=== PATIENT | male | born 1975 | race Caucasian/White ===

== ENCOUNTER 2020-08-11 17:48 | Inpatient (IN) | payer MEDICAID ==
[~2020-08-11] VITALS: Ht 175.3 cm; Wt 75.5 kg
[2020-08-11] MEDS ORDERED: ZINC SULFATE 220mg CAP or TAB PO ONE (18:30)
[2020-08-11] MEDS ORDERED: methylPREDNISolone SOD SUCC 125 MG/2 ML VL IV ONE (18:30)
[2020-08-11] MEDS ORDERED: ASCORBIC ACID 500 MG TAB PO ONE (18:30)
[2020-08-11] MEDS ORDERED: cefTRIAXone 1GM/50ML D5W 50 ML IV ONE (18:30)
[2020-08-11] MEDS ORDERED: AZITHROMYCIN 500MG/ 250ML 250 ML IV ONE (18:30)
[2020-08-11] MEDS ORDERED: MORPHINE SULFATE 4 MG/ML SYR/VIAL IV ONE (18:45)
[2020-08-11 19:08] LABS: Basophils # (auto) 0.1 10 ^3/uL (0-0.2); Basophils % (auto) 0.4 % (0.0-2.0); Eosinophils # (auto) 0 10 ^3/uL (0-0.8); Eosinophils % (auto) 0.2 % (0.0-7.0); Hematocrit 42.6 % (41.0-53.0); Lymphocytes # (auto) 0.8 10 ^3/uL (0.4-5.4); Lymphocytes % (auto) 3.8 % (10.0-50.0); Mean Corpuscular Hemoglobin 33.2 pg (28.0-32.0); Mean Corpuscular Hgb Conc. 35.3 g/dL (32.0-36.0); Mean Corpuscular Volume 94.1 fL (80.0-100.0); Monocytes # (auto) 2.6 10 ^3/uL (0-1.3); Monocytes % (auto) 12.4 % (0.0-12.0); Neutrophils # (auto) 17.3 10 ^3/uL (1.6-8.6); Neutrophils % (auto) 83.2 % (37.0-80.0); Nucleated Red Blood Cells % 0.2 %; Platelet Count (auto) 385 10^3/uL (140-450); Red Blood Cells 4.53 10^6/uL (4.5-5.90); Red Cell Distribution Width 13.2 % (11.8-14.3); White Blood Cell 20.7 10^3/uL (4.4-10.8)
[2020-08-11 19:23] LABS: Albumin 3.5 g/dL (3.4-5.0); Anion Gap 10 (5-15); Blood Urea Nitrogen 10 mg/dL (7-18); Calcium 9.5 mg/dL (8.5-10.1); Carbon Dioxide 24 mmol/L (21-32); Chloride 100 mmol/L (98-107); Glucose 123 mg/dL (74-106); Magnesium 2.6 mg/dL (1.6-2.6); Sodium 134 mmol/L (136-145)
[2020-08-11 19:30] LABS: Alanine Aminotransferase 159 U/L (16-61); Alkaline Phosphatase 171 U/L (45-117); Aspartate Aminotransferase 122 U/L (15-37); BUN/Creatinine Ratio 8.5; Bilirubin, Total 1.2 mg/dL (0.2-1.0); GFR African American 88 mL/min; GFR Non-African American 72 mL/min; Total Protein 8.9 g/dL (6.4-8.2)
[2020-08-11 19:42] LABS: Potassium 2.9 mmol/L (3.5-5.1)
[2020-08-11 19:45] LABS: INR 1.07 (0.9-1.15); Partial Thromboplastin Time 30.1 sec (23.0-31.2)
[2020-08-11] MEDS ORDERED: POTASSIUM CHL 20MEQ/100ML 100 ML IV ONE (19:45)
[2020-08-11] MEDS ORDERED: POTASSIUM CHL 20 Meq TABLET PO ONE (19:45)
[2020-08-11] MEDS ORDERED: cloNIDine HCL 0.1 MG TAB PO ONE ×2 (20:15→22:00)
[2020-08-11] MEDS ORDERED: ONDANSETRON HCL 4 MG/2 ML VIAL IV ONE (20:45)
[2020-08-11] MEDS ORDERED: MORPHINE SULF INJ 2 MG/ML SYRINGE 1ML IV PRN (21:00)
[2020-08-11] MEDS ORDERED: NITROGLYCERIN 0.4 MG SL TAB SL PRN (21:00)
[2020-08-11] MEDS ORDERED: ALBUTEROL SULF HFA 90MCG INH 200DOSE IN SCH (22:00)
[2020-08-11] MEDS ORDERED: DOXYCYCLINE 100MG/250ML 250 ML IV SCH (22:00)
[2020-08-11 22:42] VITALS: BP 128/74
--- NOTE | 2020-08-11 22:45 | NUR ---
pt arrived via wheel chair. pt is ambulatory, and transferred self to hospital bed.
--- NOTE | 2020-08-11 23:03 | NUR ---
Respiratory note: PT SEEN AND ASSESSED AT THIS TIME. NO RESPIRATORY DISTRESS NOTED. HR 77 RR 18 SP02 95% ON ROOM AIR.
[2020-08-11 23:10] VITALS: BP 128/74
--- NOTE | 2020-08-12 04:55 | NUR ---
pt transferred to 223B. Endorsed care to JIGAR Powers.
--- NOTE | 2020-08-12 05:00 | NUR ---
Assumed patient care Assumed patient care, report received from Zoraida KIMBALL. Patient transferred to room 223B with all personal belongings via wheelcair. Patient AOx4, no distress noted. Bed in lowest locked position, call light within reach, side rails up x2. Will continue to monitor Q1hr and PRN.
[2020-08-12] MEDS: ACETAMINOPHEN 325 MG TAB PO PRN (05:09)
[2020-08-12 06:33] VITALS: BP 124/88
--- NOTE | 2020-08-12 08:00 | NUR ---
Opening Shift Note Assumed care of patient, awake, alert and oriented X4. No S/S of distress/SOB, complains of left, upper posterior back pain 5/10, verbalized this is tolerable. Tele# 36, sinus rhythm @ 63 bpm. IV X2, left antecubital, 22 gauge and left forearm, 18 gauge. both patent and saline locked. Instructed on POC and to call for assist PRN, verbalized understanding. Bed locked, in lowest position, call light within reach, will continue to monitor for changes Q1hr and PRN.
[2020-08-12 08:45] VITALS: BP 132/95
[2020-08-12 09:41] LABS: Basophils # (auto) 0 10 ^3/uL (0-0.2); Basophils % (auto) 0.1 % (0.0-2.0); Eosinophils # (auto) 0 10 ^3/uL (0-0.8); Hematocrit 42.4 % (41.0-53.0); Hemoglobin 14.5 g/dL (13.5-17.5); Lymphocytes # (auto) 0.6 10 ^3/uL (0.4-5.4); Lymphocytes % (auto) 3.4 % (10.0-50.0); Mean Corpuscular Hemoglobin 32.2 pg (28.0-32.0); Mean Corpuscular Hgb Conc. 34.1 g/dL (32.0-36.0); Mean Corpuscular Volume 94.5 fL (80.0-100.0); Monocytes % (auto) 5.3 % (0.0-12.0); Neutrophils # (auto) 16.9 10 ^3/uL (1.6-8.6); Neutrophils % (auto) 91.2 % (37.0-80.0); Platelet Count (auto) 439 10^3/uL (140-450); Red Blood Cells 4.48 10^6/uL (4.5-5.90); Red Cell Distribution Width 12.8 % (11.8-14.3); White Blood Cell 18.5 10^3/uL (4.4-10.8)
[2020-08-12 09:56] LABS: Albumin 3.2 g/dL (3.4-5.0); Calcium 9.9 mg/dL (8.5-10.1); Potassium 3.5 mmol/L (3.5-5.1)
[2020-08-12 10:00] LABS: BUN/Creatinine Ratio 12.8; Bilirubin, Total 0.5 mg/dL (0.2-1.0); Total Protein 8.7 g/dL (6.4-8.2)
[2020-08-12] MEDS ORDERED: ZINC SULFATE 220mg CAP or TAB PO SCH (10:00)
[2020-08-12] MEDS ORDERED: DexAMETHasone SOD PHOS 10MG/1ML VIAL INJ IV SCH (10:00)
[2020-08-12] MEDS: ENOXAPARIN SOD 40 MG/0.4 ML SYRINGE SC SCH (10:00)
[2020-08-12] MEDS ORDERED: CHOLECALCIFEROL (VITD3) 2,000 UNIT CAP PO SCH (10:00)
[2020-08-12] MEDS ORDERED: ASCORBIC ACID 1,000 MG TAB PO SCH (10:00)
[2020-08-12] MEDS ORDERED: CHOLECALCIFEROL (VITD3) 1,000UNIT=25mCg TAB PO SCH (10:00)
[2020-08-12] MEDS: FAMOTIDINE 20 MG TAB PO SCH ×3 (10:28→21:33)
--- NOTE | 2020-08-12 12:50 | NUR ---
ROUNDS Dr Gaspar at bedside for rounds, new orders received and followed through. Patient updated on plan of care, verbalized understanding.
[2020-08-12 13:00] VITALS: BP 139/98
[2020-08-12] MEDS ORDERED: levoFLOXacin 750MG 150 ML IV SCH (13:15)
[2020-08-12] MEDS: guaiFENesin-DM 100/10mg/5ml SYR PO PRN (14:01)
[2020-08-12] MEDS: HYDROcodone-ACET 5/325MG TAB PO PRN ×2 (14:49→21:33)
[2020-08-12 15:14] LABS: Urine Bacteria NONE SEEN /hpf (None Seen); Urine Blood Negative /uL (Negative); Urine WBC 1 /hpf (0 - 3)
[2020-08-12 15:18] LABS: Alcohol, Urine < 3.0 mg/dL (0-10); Amphetamine Screen, Urine NEGATIVE (NEGATIVE); Barbiturate Scree,Urine NEGATIVE (NEGATIVE); Benzodiazephine Screen, Urine NEGATIVE (NEGATIVE); Cannabinoid Screen, Urine POSITIVE (NEGATIVE); Cocaine Screen, Urine NEGATIVE (NEGATIVE); Phencyclidine Screen, Urine NEGATIVE (NEGATIVE)
[2020-08-12 15:25] LABS: Opiate Scree,Urine NEGATIVE (NEGATIVE)
[2020-08-12] MEDS ORDERED: MEROPENEM 500MG IVPB 50 ML IV ONE (16:15)
--- NOTE | 2020-08-12 16:40 | NUR ---
Respiratory note: PT SPUTUM CULTURE SENT PER DR HESTER ORDER.
[2020-08-12 16:57] VITALS: BP 126/93
--- NOTE | 2020-08-12 17:51 | NUR ---
KAVEH HEBERT states they want to leave the floor Against Medical Advice (AMA) to go outside and smoke. Patient encouraged to stay on floor and not smoke. Patient advised of the risks and benefits of leaving AMA. Patient verbalized understanding and signed required AMA form.
--- NOTE | 2020-08-12 19:10 | NUR ---
Care endorsed to JIGAR Powers, night nurse.
--- NOTE | 2020-08-12 20:00 | NUR ---
Opening Shift Note Assumed care of patient, awake and alert. No S/S of distress/SOB or pain. Instructed on POC and to call for assist PRN. Bed in lowest locked position, call light within reach, side rails up x2. Will continue to monitor for changes Q1hr and PRN.
[2020-08-12] MEDS: MEROPENEM 1GM IVPB 50 ML IV SCH (21:32)
[2020-08-12 22:00] VITALS: BP 132/89
[2020-08-13] MEDS: HYDROcodone-ACET 5/325MG TAB PO PRN ×3 (01:05→09:13)
[2020-08-13] MEDS: TEMAZEPAM 15 MG CAP PO PRN ×2 (01:15→22:11)
--- NOTE | 2020-08-13 01:20 | NUR ---
MD paged Patient's HR in 150s due to patient complaining of pain and norco not helping with pain. Hospitalist paged for pain medication.
[2020-08-13] MEDS: ONDANSETRON HCL 4 MG/2 ML VIAL IV PRN ×5 (01:28→19:40)
--- NOTE | 2020-08-13 01:50 | NUR ---
MD re paged MD Tenorio repaged in regards to pain medication and increased HR in the 150s due to pain and agitation. Spoke with MD, new orders received and read back for verification.
[2020-08-13] MEDS: MORPHINE SULF INJ 2 MG/ML SYRINGE 1ML IV PRN ×5 (01:55→19:40)
[2020-08-13 05:00] VITALS: BP 129/85
[2020-08-13] MEDS: MEROPENEM 1GM IVPB 50 ML IV SCH ×3 (06:14→22:10)
[2020-08-13 07:13] LABS: Basophils # (auto) 0 10 ^3/uL (0-0.2); Basophils % (auto) 0.2 % (0.0-2.0); Eosinophils # (auto) 0 10 ^3/uL (0-0.8); Hematocrit 40.1 % (41.0-53.0); Hemoglobin 13.9 g/dL (13.5-17.5); Lymphocytes % (auto) 4.7 % (10.0-50.0); Mean Corpuscular Hemoglobin 32.5 pg (28.0-32.0); Mean Corpuscular Hgb Conc. 34.5 g/dL (32.0-36.0); Mean Corpuscular Volume 94.1 fL (80.0-100.0); Monocytes # (auto) 2.4 10 ^3/uL (0-1.3); Neutrophils # (auto) 18.3 10 ^3/uL (1.6-8.6); Neutrophils % (auto) 84.1 % (37.0-80.0); Platelet Count (auto) 421 10^3/uL (140-450); Red Blood Cells 4.26 10^6/uL (4.5-5.90); White Blood Cell 21.8 10^3/uL (4.4-10.8)
[2020-08-13 07:28] LABS: Albumin 3.1 g/dL (3.4-5.0); BUN/Creatinine Ratio 12.9; Bilirubin, Total 0.7 mg/dL (0.2-1.0); Calcium 9.2 mg/dL (8.5-10.1); Total Protein 7.6 g/dL (6.4-8.2)
--- NOTE | 2020-08-13 08:00 | NUR ---
Opening Shift Note Assumed care of patient, awake, alert and oriented X4. No S/S of distress/SOB, complains of left, upper posterior back pain 10/, informed will medicate with prescribed pain medication. Tele# 36, sinus tachycardia @ 105 bpm. IV X2, left antecubital, 22 gauge and left forearm, 18 gauge, both patent and saline locked. Instructed on POC and to call for assist PRN, verbalized understanding. Bed locked, in lowest position, call light within reach, will continue to monitor for changes Q1hr and PRN
[2020-08-13 09:00] VITALS: BP 145/96
[2020-08-13 09:34] LABS: Hepatitis B Surface Antibody Negative
[2020-08-13 10:07] LABS: Hepatitis A Total Antibody Positive
--- NOTE | 2020-08-13 10:28 | NUR ---
PULMONARY Dr Kirk at bedside for Pulmonary follow up. Plan of care discussed with patient, verbalized understanding.
[2020-08-13] MEDS: ENOXAPARIN SOD 40 MG/0.4 ML SYRINGE SC SCH (10:29)
[2020-08-13] MEDS: FAMOTIDINE 20 MG TAB PO SCH ×2 (10:29→21:55)
--- NOTE | 2020-08-13 11:17 | NUR ---
ROUNDS Dr Gaspar at bedside for rounds, new orders received and followed through. Patient updated on plan of care, verbalized understanding
[2020-08-13 11:23] LABS: Hepatitis B Surface Antigen Negative (Negative)
[2020-08-13] MEDS ORDERED: traMADol HCL 50 MG TAB PO PRN (11:30)
[2020-08-13 11:32] LABS: Hepatitis B Core Total AB Negative
[2020-08-13 11:35] LABS: Hepatitis C Antibody Negative (Negative)
[2020-08-13] MEDS ORDERED: POTASSIUM CHL 20 Meq TABLET PO ONE (12:00)
[2020-08-13 13:00] VITALS: BP 139/89
--- NOTE | 2020-08-13 14:35 | NUR ---
IV removal IV DC'd to left antecubital with sterile technique, due to swelling and pain, catheter fully intact. Pressure dressing applied to site. Patient tolerated procedure well.
--- NOTE | 2020-08-13 14:57 | NUR ---
LIVER ULTRASOUND field sampling technician at bedside for Liver Ultrasound.
[2020-08-13 17:00] VITALS: BP 143/70
[2020-08-13] MEDS: KETOROLAC TROMETH 30 MG/ML 1ML VIAL IV PRN (17:03)
[2020-08-13] MEDS: LORazepam 0.5 MG TAB PO PRN (17:11)
--- NOTE | 2020-08-13 18:57 | NUR ---
Care endorsed to JIGAR Chavez, night nurse.
[2020-08-13 22:00] VITALS: BP 144/93
[2020-08-13] MEDS: guaiFENesin-DM 100/10mg/5ml SYR PO PRN (22:10)
[2020-08-14] MEDS: LORazepam 0.5 MG TAB PO PRN ×3 (01:00→20:40)
[2020-08-14] MEDS: KETOROLAC TROMETH 30 MG/ML 1ML VIAL IV PRN ×4 (01:25→22:02)
[2020-08-14] MEDS: MORPHINE SULF INJ 2 MG/ML SYRINGE 1ML IV PRN ×5 (03:42→23:40)
[2020-08-14 04:50] VITALS: BP 123/95
[2020-08-14 05:38] LABS: Basophils # (auto) 0.1 10 ^3/uL (0-0.2); Basophils % (auto) 0.6 % (0.0-2.0); Eosinophils # (auto) 0.1 10 ^3/uL (0-0.8); Eosinophils % (auto) 0.5 % (0.0-7.0); Lymphocytes % (auto) 6.7 % (10.0-50.0); Mean Corpuscular Hemoglobin 32.9 pg (28.0-32.0); Mean Corpuscular Hgb Conc. 35.1 g/dL (32.0-36.0); Mean Corpuscular Volume 93.6 fL (80.0-100.0); Monocytes # (auto) 1.6 10 ^3/uL (0-1.3); Monocytes % (auto) 10.8 % (0.0-12.0); Neutrophils # (auto) 12.1 10 ^3/uL (1.6-8.6); Neutrophils % (auto) 81.4 % (37.0-80.0); Nucleated Red Blood Cells % 0.1 %; Platelet Count (auto) 398 10^3/uL (140-450); Red Blood Cells 4.27 10^6/uL (4.5-5.90); Red Cell Distribution Width 13.1 % (11.8-14.3); White Blood Cell 14.9 10^3/uL (4.4-10.8)
[2020-08-14 06:00] LABS: Albumin 2.6 g/dL (3.4-5.0); Calcium 9.2 mg/dL (8.5-10.1); Potassium 3.3 mmol/L (3.5-5.1)
[2020-08-14] MEDS: MEROPENEM 1GM IVPB 50 ML IV SCH ×3 (06:02→22:01)
[2020-08-14 06:05] LABS: BUN/Creatinine Ratio 11.8; Bilirubin, Total 0.6 mg/dL (0.2-1.0); Total Protein 7.2 g/dL (6.4-8.2)
[2020-08-14 09:00] VITALS: BP 143/86
--- NOTE | 2020-08-14 09:00 | NUR ---
IV removal IV DC'd with sterile technique, catheter fully intact. Pressure dressing applied to site. Patient tolerated procedure well. IV insertion IV access obtained, via clean sterile technique by inserting gauge catheter at after attempt(s). IV secured properly. No trauma to site. Patient tolerated procedure well.
[2020-08-14] MEDS: FAMOTIDINE 20 MG TAB PO SCH ×2 (09:31→22:01)
[2020-08-14] MEDS: ENOXAPARIN SOD 40 MG/0.4 ML SYRINGE SC SCH (09:31)
[2020-08-14] MEDS: ONDANSETRON HCL 4 MG/2 ML VIAL IV PRN ×4 (09:54→23:42)
[2020-08-14 13:00] VITALS: BP 137/88
[2020-08-14] MEDS ORDERED: POTASSIUM CHL 20 Meq TABLET PO ONE (13:15)
[2020-08-14] MEDS: ACETAMINOPHEN 325 MG TAB PO PRN (16:34)
[2020-08-14 17:00] VITALS: BP 116/69
--- NOTE | 2020-08-14 19:55 | NUR ---
OPENING SHIFT NOTE Pt is resting in bed with eyes open and resp rate is even and unlabored but shallow r/t pain. Pt states that, "My pain is never under 6/10. Even with the pain medicine." POC discussed with pt and all medication times written on the communication board. Pt is in agreement and verbalizes understanding. Bed is low, wheels are locked and call light is with in reach.
[2020-08-14 22:00] VITALS: BP 141/92
[2020-08-14] MEDS: TEMAZEPAM 15 MG CAP PO PRN (23:42)
[2020-08-15] MEDS: PROMETHAZINE W/CODEINE 5 ML ORAL SYRUP PO PRN ×3 (01:28→18:28)
[2020-08-15] MEDS: MORPHINE SULF INJ 2 MG/ML SYRINGE 1ML IV PRN ×5 (03:52→22:20)
--- NOTE | 2020-08-15 03:52 | NUR ---
Pt is sobbing and reports upper left lung pain 10/10. Pt medicated per MD orders and heat pad applied to left chest.
[2020-08-15] MEDS: ONDANSETRON HCL 4 MG/2 ML VIAL IV PRN ×4 (03:53→18:22)
[2020-08-15] MEDS: KETOROLAC TROMETH 30 MG/ML 1ML VIAL IV PRN ×3 (05:21→20:37)
[2020-08-15] MEDS: MEROPENEM 1GM IVPB 50 ML IV SCH ×3 (05:37→23:43)
[2020-08-15] MEDS: LORazepam 0.5 MG TAB PO PRN ×2 (05:37→14:24)
[2020-08-15 06:00] VITALS: BP 132/81
[2020-08-15 07:12] LABS: Basophils # (auto) 0 10 ^3/uL (0-0.2); Basophils % (auto) 0.2 % (0.0-2.0); Eosinophils # (auto) 0.2 10 ^3/uL (0-0.8); Hematocrit 35.1 % (41.0-53.0); Hemoglobin 12.3 g/dL (13.5-17.5); Lymphocytes % (auto) 6.6 % (10.0-50.0); Mean Corpuscular Hgb Conc. 34.9 g/dL (32.0-36.0); Mean Corpuscular Volume 94.3 fL (80.0-100.0); Monocytes # (auto) 2.1 10 ^3/uL (0-1.3); Monocytes % (auto) 13.5 % (0.0-12.0); Neutrophils # (auto) 12.4 10 ^3/uL (1.6-8.6); Neutrophils % (auto) 78.7 % (37.0-80.0); Platelet Count (auto) 383 10^3/uL (140-450); Red Blood Cells 3.72 10^6/uL (4.5-5.90); White Blood Cell 15.8 10^3/uL (4.4-10.8)
[2020-08-15 09:00] VITALS: BP 157/97
[2020-08-15] MEDS: FAMOTIDINE 20 MG TAB PO SCH ×2 (10:19→23:44)
[2020-08-15] MEDS: ENOXAPARIN SOD 40 MG/0.4 ML SYRINGE SC SCH (10:22)
--- NOTE | 2020-08-15 12:02 | NUR ---
Nutrition Assessment Est energy needs 0219-4777 kcal (20-25kcal/kg BW 75kg) est protein needs 60-75g (0.8-1g/kg BW 75kg) Will reassess prn. Addendum: 08/15/20 at [address] Amended: Links added.
[2020-08-15] MEDS: METHOCARBAMOL 500 MG TAB PO PRN ×2 (12:15→18:25)
[2020-08-15 13:00] VITALS: BP 125/75
[2020-08-15 17:09] VITALS: BP 127/94
[2020-08-15] MEDS ORDERED: POTASSIUM CHL 20 Meq TABLET PO ONE (19:30)
[2020-08-15] MEDS ORDERED: POTASSIUM CHL 20MEQ/100ML 100 ML IV ONE (19:30)
[2020-08-15] MEDS ORDERED: VANCOMYCIN PER PHARMACY 0 MG IV SCH (19:45)
[2020-08-15] MEDS ORDERED: VANCOMYCIN 1GM/250ML 250 ML IV ONE (21:00)
[2020-08-15 22:00] VITALS: BP 132/95
--- NOTE | 2020-08-15 22:15 | NUR ---
IV IS LEAKING AND DC'D WITH CATH TIP INTACT. 2 NEW IV'S STARTED. ONE IN RIGHT UPPER ARM WITH 22G AND ANOTHER IN RIGHT FA WITH 22G.
[2020-08-15] MEDS: LACTATED RINGER'S 1,000 ML IV SCH (23:09)
[2020-08-15] MEDS: TEMAZEPAM 15 MG CAP PO PRN (23:10)
[2020-08-16] VITALS (7 sets, daily range): BP systolic 122–156; BP diastolic 64–102
[2020-08-16] MEDS: METHOCARBAMOL 500 MG TAB PO PRN ×4 (00:27→22:33)
[2020-08-16] MEDS: PROMETHAZINE W/CODEINE 5 ML ORAL SYRUP PO PRN ×4 (00:27→22:32)
[2020-08-16] MEDS: LORazepam 0.5 MG TAB PO PRN ×3 (00:27→17:57)
[2020-08-16] MEDS: MORPHINE SULF INJ 2 MG/ML SYRINGE 1ML IV PRN ×4 (02:55→21:01)
[2020-08-16] MEDS: ONDANSETRON HCL 4 MG/2 ML VIAL IV PRN ×5 (02:56→21:01)
[2020-08-16] MEDS: KETOROLAC TROMETH 30 MG/ML 1ML VIAL IV PRN ×3 (03:35→17:57)
[2020-08-16] MEDS: LACTATED RINGER'S 1,000 ML IV SCH ×2 (06:46→15:30)
[2020-08-16] MEDS: MEROPENEM 1GM IVPB 50 ML IV SCH ×3 (06:46→22:31)
[2020-08-16 07:30] LABS: Hematocrit 36.9 % (41.0-53.0); Hemoglobin 12.9 g/dL (13.5-17.5); Mean Corpuscular Hemoglobin 33.4 pg (28.0-32.0); Mean Corpuscular Hgb Conc. 34.9 g/dL (32.0-36.0); Mean Corpuscular Volume 95.7 fL (80.0-100.0); Platelet Count (auto) 481 10^3/uL (140-450); Red Blood Cells 3.86 10^6/uL (4.5-5.90); Red Cell Distribution Width 13.1 % (11.8-14.3); White Blood Cell 10.9 10^3/uL (4.4-10.8)
[2020-08-16 07:36] LABS: Basophils % (manual) 0 (0.0-2.0); Blast Cells 0; Metamyelocytes % 0; Myelocytes % 0; Promyelocytes % 0; Reactive Lymphocytes 0
[2020-08-16 07:39] LABS: INR 1.02 (0.9-1.15)
[2020-08-16 07:42] LABS: Magnesium 2.5 mg/dL (1.6-2.6); Potassium 3.6 mmol/L (3.5-5.1)
[2020-08-16 07:51] LABS: Band Neutrophils % (manual) 1; Eosinophils % (manual) 2 (0-7); Lymphocytes % (manual) 17 (10.0-50.0); Monocytes % (manual) 7 (0-12)
[2020-08-16 07:54] LABS: Albumin 2.5 g/dL (3.4-5.0); BUN/Creatinine Ratio 9.3; Bilirubin, Total 0.4 mg/dL (0.2-1.0); CRP High Sensitivity 10.7 mg/dL (< 0.3); Phosphorus 3.5 mg/dL (2.5-4.90)
[2020-08-16] MEDS: ENOXAPARIN SOD 40 MG/0.4 ML SYRINGE SC SCH (08:44)
[2020-08-16] MEDS: POTASSIUM CHL 20 Meq TABLET PO SCH (08:44)
[2020-08-16] MEDS: FAMOTIDINE 20 MG TAB PO SCH ×2 (08:44→22:31)
[2020-08-16] MEDS: VANCOMYCIN 1GM/250ML 250 ML IV SCH ×2 (12:59→20:50)
--- NOTE | 2020-08-16 13:25 | NUR ---
PAIN MANAGEMENT PATIENT C/O PAIN, MEDICATIONS GIVEN ORDERED, WILL CONTINUE TO REASSESS AND ADDRESS PAIN WILL CONTINUE TO MONITOR
--- NOTE | 2020-08-16 20:00 | NUR ---
Opening Shift Note Assumed care of patient, awake and alert. No S/S of distress/SOB or pain. Instructed on POC and to call for assist PRN, will continue to monitor for changes Q1hr and PRN.
[2020-08-17] MEDS: LACTATED RINGER'S 1,000 ML IV SCH (01:30)
[2020-08-17] MEDS: ONDANSETRON HCL 4 MG/2 ML VIAL IV PRN ×2 (01:32→06:42)
[2020-08-17] MEDS: MORPHINE SULF INJ 2 MG/ML SYRINGE 1ML IV PRN ×2 (01:33→06:42)
[2020-08-17] MEDS: TEMAZEPAM 15 MG CAP PO PRN (01:57)
[2020-08-17] MEDS: VANCOMYCIN 1GM/250ML 250 ML IV SCH (04:23)
[2020-08-17 05:00] VITALS: BP 125/80
[2020-08-17] MEDS: MEROPENEM 1GM IVPB 50 ML IV SCH (06:10)
[2020-08-17 07:05] LABS: Basophils # (auto) 0.1 10 ^3/uL (0-0.2); Eosinophils # (auto) 0.3 10 ^3/uL (0-0.8); Monocytes # (auto) 1.9 10 ^3/uL (0-1.3)
--- NOTE | 2020-08-17 07:05 | NUR ---
Opening Shift Note Assumed care of patient, awake and alert. No S/S of distress/SOB. Instructed on POC and to call for assist PRN, will continue to monitor for changes Q1hr and PRN.
[2020-08-17 07:07] LABS: Basophils % (auto) 0.6 % (0.0-2.0); Eosinophils % (auto) 2.3 % (0.0-7.0); Hematocrit 35.7 % (41.0-53.0); Hemoglobin 11.8 g/dL (13.5-17.5); Lymphocytes # (auto) 1.3 10 ^3/uL (0.4-5.4); Lymphocytes % (auto) 10.3 % (10.0-50.0); Mean Corpuscular Hemoglobin 31.7 pg (28.0-32.0); Mean Corpuscular Hgb Conc. 33.1 g/dL (32.0-36.0); Mean Corpuscular Volume 95.9 fL (80.0-100.0); Monocytes % (auto) 14.5 % (0.0-12.0); Neutrophils # (auto) 9.3 10 ^3/uL (1.6-8.6); Neutrophils % (auto) 72.3 % (37.0-80.0); Platelet Count (auto) 519 10^3/uL (140-450); Red Blood Cells 3.72 10^6/uL (4.5-5.90); Red Cell Distribution Width 13.1 % (11.8-14.3); White Blood Cell 12.8 10^3/uL (4.4-10.8)
[2020-08-17 07:22] LABS: INR 1.01 (0.9-1.15); Partial Thromboplastin Time 27.4 sec (23.0-31.2)
[2020-08-17 07:28] LABS: Albumin 2.3 g/dL (3.4-5.0); Magnesium 2.4 mg/dL (1.6-2.6); Potassium 3.6 mmol/L (3.5-5.1)
[2020-08-17 07:32] LABS: BUN/Creatinine Ratio 7.6; Bilirubin, Total 0.3 mg/dL (0.2-1.0); Phosphorus 3.3 mg/dL (2.5-4.90); Total Protein 6.5 g/dL (6.4-8.2)
[2020-08-17] MEDS: POTASSIUM CHL 20 Meq TABLET PO SCH (08:56)
[2020-08-17] MEDS: ENOXAPARIN SOD 40 MG/0.4 ML SYRINGE SC SCH (08:56)
[2020-08-17] MEDS: FAMOTIDINE 20 MG TAB PO SCH (08:56)
[2020-08-17 09:00] VITALS: BP 114/74
[2020-08-17] MEDS: KETOROLAC TROMETH 30 MG/ML 1ML VIAL IV PRN (09:14)
[2020-08-17] MEDS: PROMETHAZINE W/CODEINE 5 ML ORAL SYRUP PO PRN (09:14)
--- NOTE | 2020-08-17 10:10 | NUR ---
MD was at bedside - Dr. Kirk This RN was at bedside. Patient is okay for discharge per MD.
--- NOTE | 2020-08-17 10:18 | NUR ---
MD was at bedside - Dr. Shaikh BUCIO discussed with the patient and this RN. Patient verbalized understanding.
[2020-08-17] MEDS ORDERED: TRAM-297 PO (11:46)
[2020-08-17] MEDS ORDERED: LEVO750T8 PO (11:46)
[2020-08-17] MEDS ORDERED: SACC250C PO (11:46)
[2020-08-17] MEDS: ACETAMINOPHEN 325 MG TAB PO PRN (12:16)
[2020-08-17 13:00] VITALS: BP 123/77
--- NOTE | 2020-08-17 13:15 | NUR ---
DC Pt education, f/u appointments and prescriptions given. Pt verbalized understanding. Two IVs DC'd with clean sterile technique, catheters fully intact. Pressure dressings applied to site. Patient tolerated well. Tele box returned. Pt discharged to private vehicle.
== END 2020-08-17 13:12 | disposition home or self-care (01) | DRG 720 ==
LOC: ER 17:48 → TELE 17:49 → TELE-EAST 22:38 → TELE-CENTR 08-12 04:43
PROVIDERS: ADMIT Nurse Practitioner; ATTEND Internal Medicine
PROC: 4A12X4Z Monitoring of Cardiac Electrical Activity, External Approach (ICD-10-PCS; principal; 2020-08-12)
DX: A41.9 Sepsis, unspecified organism (principal); J85.1 Abscess of lung with pneumonia; E87.6 Hypokalemia; E43 Unspecified severe protein-calorie malnutrition; Z68.24 Body mass index [BMI] 24.0-24.9, adult; R07.81 Pleurodynia; F12.90 Cannabis use, unspecified, uncomplicated; F17.200 Nicotine dependence, unspecified, uncomplicated; K76.0 Fatty (change of) liver, not elsewhere classified; Z20.828 Contact with and (suspected) exposure to other viral communicable diseases; R74.01 Elevation of levels of liver transaminase levels; R07.89 Other chest pain; M31.30 Wegener's granulomatosis without renal involvement; E78.5 Hyperlipidemia, unspecified; Z79.899 Other long term (current) drug therapy; B17.9 Acute viral hepatitis, unspecified
CPT/HCPCS: 36415; 71045; 71250; 76705; 80053; 80061; 80202; 80307; 81001; 82728; 83036; 83605; 83615; 83735; 83880; 84100; 84132; 84443; 84484; 85007; 85025; 85027; 85379; 85610; 85652; 85730; 86038; 86141; 86635; 86641; 86703; 86704; 86706; 86708; 86803; 87040; 87070; 87081; 87086; 87205; 87340; 87426; 93005; 96365; 96375; 99291; G0378; J0696; J1885; J1956; J2185; J2405; J3480; J3490

== ENCOUNTER 2024-12-08 14:55 | Inpatient (IN) | payer MEDICAID, OTHER ==
[~2024-12-08] VITALS: Ht 175.3 cm; Wt 82.0 kg
[~2024-12-08 14:55] MED LIST: LEVO750T8 PO; SACC250C PO
[2024-12-08] MEDS: SODIUM CHLORIDE 0.9% 1,000 ML IV ONE ×2 (15:15→17:27)
[2024-12-08] MEDS: ONDANSETRON HCL 4 MG/2 ML VIAL IV ONE ×2 (15:48→17:27)
[2024-12-08] MEDS: fentaNYL CITRATE 100 MCG/2 ML VL IV ONE (15:53)
--- NOTE | 2024-12-08 16:12 | DVH ---
Exam: CT CT AB PEL WO CON-NO ORAL OR IV History: pain, etoh use Comparison Study: None available at time of dictation. TECHNIQUE: Multidetector CT of the abdomen was performed from lung bases to pubic symphysis. Imaging was performed without IV contrast. Axial, coronal and sagittal multiplanar reformats were obtained fr om the axial data set by the technologist. Radiation Dose Information: CT Dose: CTDI volume is 6.68 mGy. Dose-length product is 363.19 mGy*cm FINDINGS: Evaluation of solid organs is limited due to lack of intravenous contrast use. Findings: Lung Bases: No acute or significant lung base finding. Normal heart size. No pleural or pericardial effusion. Liver: The liver is normal in size. No focal lesions. Hepatic steatosis Gallbladder and Biliary Tree: Unremarkable Spleen: Unremarkable Pancreas: Stranding around the pancreas. Possible pancreatitis correlate with lab values. Adrenal Glands: Unremarkable Kidneys: Kidneys are grossly normal without calculi or hydronephrosis. Bladder: Grossly unremarkable for degree of distention. Bowel: The stomach is grossly normal in appearance. Small bowel and colon are normal in caliber and d istribution. The appendix is not visualized; however, no secondary findings of acute appendicitis id entified. Ascites: Absent Lymphadenopathy: No mesenteric, retroperitoneal or periportal lymphadenopathy. Abdominal Wall and Mesentery: Unremarkable. Vasculature: The visualized abdominal aorta is normal in size and caliber. Evaluation of abdominal a nd pelvic vessels is limited due to lack of intravenous contrast. Pelvic Organs: Unremarkable Musculoskeletal: No aggressive focal bony lesions, acute fractures or dislocation. Soft tissues: Unremarkable IMPRESSION: 1. Hepatic steatosis 2. Stranding around the pancreas correlate for possible pancreatitis Radiation optimization: All CT scans at this facility use at least one of these dose optimization sandra hniques: automated exposure control mA and/or kV adjustment per patient size (includes targeted exam s where dose is matched to clinical indication) or iterative reconstruction.
[2024-12-08 16:27] LABS: Basophils # (auto) 0 10 ^3/uL (0-0.2); Basophils % (auto) 0.1 % (0.0-2.0); Eosinophils # (auto) 0 10 ^3/uL (0-0.8); Eosinophils % (auto) 0.1 % (0.0-7.0); Hematocrit 44.2 % (41.0-53.0); Hemoglobin 15.2 g/dL (13.5-17.5); Lymphocytes % (auto) 5.8 % (10.0-50.0); Mean Corpuscular Hemoglobin 33.6 pg (28.0-32.0); Mean Corpuscular Hgb Conc. 34.3 g/dL (32.0-36.0); Mean Corpuscular Volume 97.9 fL (80.0-100.0); Monocytes # (auto) 1.4 10 ^3/uL (0-1.3); Nucleated Red Blood Cells % 0.1 %; Platelet Count (auto) 278 10^3/uL (140-450); Red Blood Cells 4.52 10^6/uL (4.5-5.90); Red Cell Distribution Width 12.9 % (11.8-14.3); White Blood Cell 17.5 10^3/uL (4.4-10.8)
[2024-12-08 16:45] LABS: Albumin 4.4 g/dL (3.2-4.8); Alkaline Phosphatase 69 U/L (46-116); Anion Gap 18 (5-15); BUN/Creatinine Ratio 12.2 (10.0-20.0); Blood Urea Nitrogen 10 mg/dL (9-23); Calcium 9.8 mg/dL (8.7-10.4); Chloride 106 mmol/L (98-107); Sodium 144 mmol/L (136-145)
[2024-12-08 16:46] LABS: Bilirubin, Total 0.4 mg/dL (0.2-1.0); Total Protein 6.8 g/dL (5.7-8.2)
[2024-12-08 17:09] LABS: Alanine Aminotransferase 82 U/L (7-40); Aspartate Aminotransferase 64 U/L (13-40); Carbon Dioxide 20 mmol/L (20-31); Glucose 129 mg/dL (74-106); Lipase 1511 U/L (12-53); Potassium 3.3 mmol/L (3.5-5.1)
--- NOTE | 2024-12-08 17:13 | ED.PDOC ---
GI ASSESSMENT Chief Complaint: Abdominal Pain Comments pt drinks several hard drinks and beers daily. today started to have epigastric pain. Time Seen by MD: 14:59 Reviewed Notes: Nurses Notes, Medications, Allergies Allergies: Coded Allergies: NO KNOWN ALLERGIES (Unverified , 08/11/20) Home Meds Active Scripts Yeast (S. Boulardii)(S. Cerevi (Florastor) 250 Mg Cap, 250 MG PO DAILY, #30 CAP Prov:ELVIRA KNOWLES MD 08/17/20 Levofloxacin (Levaquin 750 mg) 750 Mg Tab, 1 TAB PO DAILY, #30 TAB Prov:ELVIRA KNOWLES MD 08/17/20 Information Source: Patient Mode of Arrival: Ambulatory Timing: Hours Duration: Since onset Quality: Aching Stool: Normal Severity: Moderate Recent: Ingestion of ETOH Recent Hx of: None Pain Location: Epigastric Associated sign and symptoms: Nausea, Abdominal Pain Past Medical History PAST MEDICAL HISTORY: Denies Surgical History: Hernia Repair Family History Family History: No family hx of Cancer, No family hx of DM, No family hx of Heart hunter Social History Smoker: Non-Smoker, Other Alcohol: Heavy Drugs: Marijuana Lives In: Home Constitutional: denies: chills, diaphoresis, fatigue, fever, malaise, sweats, weakness, others EENTM: denies: blurred vision, double vision, ear bleeding, ear discharge, ear drainage, ear pain, ear ringing, eye pain, eye redness, hearing loss, mouth pain, mouth swelling, nasal discharge, nose bleeding, nose congestion, nose pain, photophobia, tearing, throat pain, throat swelling, voice changes, others Respiratory: denies: cough, hemoptysis, orthopnea, SOB at rest, shortness of breath, SOB with excertion, stridor, wheezing, others Cardiovascular: denies: chest pain, dizzy spells, diaphoresis, Dyspnea on exertion, edema, irregular heart beat, left arm pain, lightheadedness, palpitations, PND, syncope, others Gastrointestinal: reports: abdominal pain, nausea; denies: abdomen distended, blood streaked bowels, constipated, diarrhea, dysphagia, difficulty swallowing, hematemesis, melena, poor appetite, poor fluid intake, rectal bleeding, rectal pain, vomiting, others Genitourinary: denies: burning, dysuria, flank pain, frequency, hematuria, incontinence, penile discharge, penile sore, pain, testicle pain, testicle swelling, urgency, others Neurological: denies: dizziness, fainting, headache, left sided numbness, left sided weakness, numbness, paresthesia, pre-existing deficit, right sided numbness, right sided weakness, seizure, speech problems, tingling, tremors, weakness, others Musculoskeletal: denies: back pain, gout, joint pain, joint swelling, muscle pain, muscle stiffness, neck pain, others Integumetry: denies: bruises, change in color, change in hair/nails, dryness, laceration, lesions, lumps, rash, wounds, others Allergic/Immunocompromised: denies: Difficulty Healing, Frequent Infections, Hives, Itching, others Hematologic/Lymphatic: denies: anemia, blood clots, easy bleeding, easy bruising, swollen glands, others Endocrine: denies: excessive hunger, excessive sweating, excessive thirst, excessive urination, flushing, intolerance to cold, intolerance to heat, unexplained weight gain, unexplained weight loss, others Psychiatric: denies: anxiety, bipolar disorder, depression, hopeless, panic disorder, schizophrenia, sleepless, suicidal, others All Other Systems: Reviewed and Negative Physical Exam General Appearance: No Apparent Distress, Normal HEENT: Normal ENT Inspection, Pharynx Normal, TMs Normal Neck: Full Range of Motion, Non-Tender, Normal, Normal Inspection Respiratory: Chest Non-Tender, Lungs Clear, No Accessory Muscle Use, No Res piratory Distress, Normal Breath Sounds Cardiovascular: No Edema, No JVD, No Murmur, No Gallop, Normal Peripheral Pulses, Regular Rate/Rhythm Breast Exam: Deferred Gastrointestinal: No Organomegaly, No Pulsatile Mass, Normal Bowel Sounds, Soft, Tenderness (epigastric) Genitalia: Deferred Pelvic: Deferred Rectal: Deferred Extremities: No calf tenderness, Normal capillary refill, Normal inspection, Normal range of motion, Non-tender, No pedal edema Musculoskeletal : Apperance: Normal Neurologic: Alert, grocery cashier II-XII nml as Tested, No Motor Deficits, Normal Affect, Normal Mood, No Sensory Deficits Cerebellar Function: Normal Reflexes: Normal Skin: Dry, Normal Color, Warm Lymphatic: No Adenopathy Was a procedure done? Was a procedure done?: No GI differential Dx Differential Diagnosis: AAA, Bowel Obstruction, Cholangitis, Cholecystitis, Constipation, Diverticular disease, Esophageal rupture, Esophagitis, Gastritis /PUD, Gastroenteritis, Hernia, Hepatitis, Pancreatitis, Diabetes/ DKA, Food Poisoning, Bacterial, Parasitic, Viral, Stress Ulcer, Kidney Stone X-Ray, Labs, Meds, VS Vital Signs Date Time Temp Pulse Resp B/P (MAP) Pulse Ox O2 Delivery O2 Flow Rate FiO2 12/08/24 15:53 161/129 12/08/24 15:51 98.2 123 20 161/129 (140) 98 98.2 12/08/24 15:05 98.5 120 17 174/136 (149) 97 Lab Test 12/08/24 16:08 Range/Units White Blood Count 17.5 H 4.4-10.8 10^3/uL Red Blood Count 4.52 4.5-5.90 10^6/uL Hemoglobin 15.2 13.5-17.5 g/dL Hematocrit 44.2 41.0-53.0 % Mean Corpuscular Volume 97.9 80.0-100.0 fL Mean Corpuscular Hemoglobin 33.6 H 28.0-32.0 pg Mean Corpuscular Hemoglobin Concent 34.3 32.0-36.0 g/dL Red Cell Distribution Width 12.9 11.8-14.3 % Platelet Count 278 140-450 10^3/uL Mean Platelet Volume 6.9 6.9-10.8 fL Neutrophils (%) (Auto) 86.0 H 37.0-80.0 % Lymphocytes (%) (Auto) 5.8 L 10.0-50.0 % Monocytes (%) (Auto) 8.0 0.0-12.0 % Eosinophils (%) (Auto) 0.1 0.0-7.0 % Basophils (%) (Auto) 0.1 0.0-2.0 % Neutrophils # (Auto) 15.0 H 1.6-8.6 10 ^3/uL Lymphocytes # (Auto) 1.0 0.4-5.4 10 ^3/uL Monocytes # (Auto) 1.4 H 0-1.3 10 ^3/uL Eosinophils # (Auto) 0 0-0.8 10 ^3/uL Basophils # (Auto) 0 0-0.2 10 ^3/uL Nucleated Red Blood Cells 0.1 % Sodium Level 144 136-145 mmol/L Potassium Level 3.3 L 3.5-5.1 mmol/L Chloride Level 106 98-107 mmol/L Carbon Dioxide Level 20 20-31 mmol/L Anion Gap 18 H 5-15 Blood Urea Nitrogen 10 9-23 mg/dL Creatinine 0.82 0.700-1.30 mg/dL Glomerular Filtration Rate Calc 108 >90 mL/min BUN/Creatinine Ratio 12.2 10.0-20.0 Serum Glucose 129 H 74-106 mg/dL Calcium Level 9.8 8.7-10.4 mg/dL Total Bilirubin 0.4 0.2-1.0 mg/dL Aspartate Amino Transferase (AST) 64 H 13-40 U/L Alanine Aminotransferase (ALT) 82 H 7-40 U/L Alkaline Phosphatase 69 46-116 U/L Total Protein 6.8 5.7-8.2 g/dL Albumin 4.4 3.2-4.8 g/dL Lipase 1511 H 12-53 U/L Current Medications Medications (Trade) Dose Ordered Sig/Dawson Route Start Time Stop Time Status Last Admin Sodium Chloride 1,000 ml @ 1,000 mls/hr Q1H ONCE IV 12/08/24 15:15 12/08/24 16:14 DC 12/08/24 15:15 Fentanyl Citrate 25 mcg ONCE ONCE IV 12/08/24 15:15 12/08/24 15:16 DC 12/08/24 15:53 Ondansetron HCl (Zofran) 4 mg ONCE ONCE IV 12/08/24 15:15 12/08/24 15:16 DC 12/08/24 15:48 Time of 1ST Reevaluation: 17:11 Reevaluation 1ST: Unchanged Patient Education/Counseling: Diagnosis, Treatment, Prognosis, Need For Follow Up Family Education/Counseling: No Family Present Additional Information pt is alcoholic with acute alcoholic pancreatitis. he will be admitted for further evaluation and treatments. pt has not shown signs of withdrawal. he, however, will need to be monitored for this Departure 1 Departure Time of Disposition: 17:15 Impression: Primary Impression: Acute alcoholic pancreatitis Qualified Codes: K85.20 - Alcohol induced acute pancreatitis without necrosis or infection Additional Impression: Alcoholism Disposition: ADMITTED INPATIENT Admit to: [facility] Condition: Serious Discharged With: Self Critical Care Note Critical Care Time?: Yes (1 hr-critical care time only) Critical care comment: Due to the possibility of patient's condition deteriorating, the patient required my highest attention and readiness to intervene. i assessed the patient, reviewed his records, ordered the proper tests and treatments. i communicated with medical personnel, reassessed the patient for response to treatments. i formulated a care plan and provided the critical care that excluded any procedures Stability Stability form required: ROSALINO Cade MD Dec 08, 2024 17:13
[2024-12-08] MEDS: MORPHINE SULFATE 4 MG/ML SYR/VIAL IV ONE (17:28)
[2024-12-08] MEDS ORDERED: MORPHINE SULFATE INJ 2 MG/ml SYRG IV PRN ×2 (17:45)
[2024-12-08] MEDS ORDERED: NITROGLYCERIN 0.4 MG SL TAB SL PRN (17:45)
[2024-12-08] MEDS: SODIUM CHLORIDE 0.9% 1,000 ML IV SCH (19:18)
[2024-12-08 19:38] VITALS: PULSE 126; RESP 24; O2SAT 96
[2024-12-08] MEDS: MORPHINE SULFATE 4 MG/ML SYR/VIAL IV PRN (19:38)
[2024-12-08] MEDS: hydrALAZINE HCL 20 MG/ML VL IV PRN (21:07)
[2024-12-08] MEDS: LORazepam 2MG/ML-1ML VIAL IV PRN (21:07)
[2024-12-09] MEDS: POTASSIUM CHL 20MEQ/100ML 100 ML IV SCH (00:25)
[2024-12-09] MEDS: POTASSIUM CHL 20 Meq TABLET PO ONE (00:49)
[2024-12-09] MEDS: HYDROmorphone HCL 2 MG/ML VL/or syr IV PRN ×2 (03:43→12:02)
[2024-12-09 08:06] VITALS: PULSE 130; RESP 16; O2SAT 98
--- NOTE | 2024-12-09 08:58 | DVHHP2 ---
Admitting Diagnosis: Acute Pancreatitis History of Present Illness HPI Patient is a 49-year-old male with past medical history of significant alcohol abuse who presents with epigastric pain with associated nausea. CT imaging was consistent with acute pancreatitis with lipase level noted to be 1511. Patient notes he drinks both hard liquor and beer. He notes he has had episodes of pancreatitis in the past but not to this degree. He notes his last drink was 1 day prior to admission. Patient was seen at bedside and noted to be in moderate distress with some diaphoresis. He also was noted to have some tremors. Labs were notable for leukocytosis of 17.5. He initially presented with normal renal function which progressed to an DALLAS on repeat labs. Patient was admitted for further treatment of acute pancreatitis. Home Meds Active Scripts Yeast (S. Boulardii)(S. Cerevi (Florastor) 250 Mg Cap, 250 MG PO DAILY, #30 CAP Prov:ELVIRA KNOWLES MD 08/17/20 Levofloxacin (Levaquin 750 mg) 750 Mg Tab, 1 TAB PO DAILY, #30 TAB Prov:ELVIRA KNOWLES MD 08/17/20 Past Medical History Smoker: No Hx (Negative) Alocohol: Heavy Review of Systems Constitutional: Diaphoresis Gastrointestinal: Nausea, Abdominal Pain H&P Exam Vital Signs Vital Signs Date Time Temp Pulse Resp B/P (MAP) Pulse Ox O2 Delivery O2 Flow Rate FiO2 12/09/24 08:06 130 16 98 Room Air* 0 21 12/09/24 08:05 130/98 12/09/24 07:45 98.1 98.1 General Appeara: Moderate distress Pulmonary/Respiratory: Normal inspection Cardiovascular/Chest: Tachycardia Abdominal Pain Onset Location: Epigastric Labs/Xrays Labs Test 12/08/24 16:08 Range/Units White Blood Count 17.5 H 4.4-10.8 10^3/uL Red Blood Count 4.52 4.5-5.90 10^6/uL Hemoglobin 15.2 13.5-17.5 g/dL Hematocrit 44.2 41.0-53.0 % Mean Corpuscular Volume 97.9 80.0-100.0 fL Mean Corpuscular Hemoglobin 33.6 H 28.0-32.0 pg Mean Corpuscular Hemoglobin Concent 34.3 32.0-36.0 g/dL Red Cell Distribution Width 12.9 11.8-14.3 % Platelet Count 278 140-450 10^3/uL Mean Platelet Volume 6.9 6.9-10.8 fL Neutrophils (%) (Auto) 86.0 H 37.0-80.0 % Lymphocytes (%) (Auto) 5.8 L 10.0-50.0 % Monocytes (%) (Auto) 8.0 0.0-12.0 % Eosinophils (%) (Auto) 0.1 0.0-7.0 % Basophils (%) (Auto) 0.1 0.0-2.0 % Neutrophils # (Auto) 15.0 H 1.6-8.6 10 ^3/uL Lymphocytes # (Auto) 1.0 0.4-5.4 10 ^3/uL Monocytes # (Auto) 1.4 H 0-1.3 10 ^3/uL Eosinophils # (Auto) 0 0-0.8 10 ^3/uL Basophils # (Auto) 0 0-0.2 10 ^3/uL Nucleated Red Blood Cells 0.1 % Sodium Level 144 136-145 mmol/L Potassium Level 3.3 L 3.5-5.1 mmol/L Chloride Level 106 98-107 mmol/L Carbon Dioxide Level 20 20-31 mmol/L Anion Gap 18 H 5-15 Blood Urea Nitrogen 10 9-23 mg/dL Creatinine 0.82 0.700-1.30 mg/dL Glomerular Filtration Rate Calc 108 >90 mL/min BUN/Creatinine Ratio 12.2 10.0-20.0 Serum Glucose 129 H 74-106 mg/dL Calcium Level 9.8 8.7-10.4 mg/dL Total Bilirubin 0.4 0.2-1.0 mg/dL Aspartate Amino Transferase (AST) 64 H 13-40 U/L Alanine Aminotransferase (ALT) 82 H 7-40 U/L Alkaline Phosphatase 69 46-116 U/L Total Protein 6.8 5.7-8.2 g/dL Albumin 4.4 3.2-4.8 g/dL Lipase 1511 H 12-53 U/L Assessment/Plan Primary Diagnosis 1. Acute Pancreatitis 2' Diagnosis/Co-morbidities 2. Alcohol Dependence 3. DALLAS Plan Plan: -Admit to telemetry. -NS at 150 mL/h -Pain medications as listed per MAR -Strict I's and O's -Nephrology consulted for DALLAS -Ativan as needed for alcohol withdrawal -Patient counseled on alcohol cessation -N.p.o. -Full code Plan discussed with: Patient CLIFF EUGENE DO Dec 09, 2024 08:58
[2024-12-09 09:38] LABS: Basophils # (auto) 0 10 ^3/uL (0-0.2); Basophils % (auto) 0.1 % (0.0-2.0); Eosinophils # (auto) 0 10 ^3/uL (0-0.8); Lymphocytes # (auto) 0.5 10 ^3/uL (0.4-5.4); Lymphocytes % (auto) 2.4 % (10.0-50.0); Nucleated Red Blood Cells % 0.1 %; Red Blood Cells 5.49 10^6/uL (4.5-5.90)
[2024-12-09 09:40] LABS: Hematocrit 54.5 % (41.0-53.0); Hemoglobin 18.5 g/dL (13.5-17.5); Mean Corpuscular Hemoglobin 33.7 pg (28.0-32.0); Mean Corpuscular Hgb Conc. 33.9 g/dL (32.0-36.0); Mean Corpuscular Volume 99.3 fL (80.0-100.0); Monocytes # (auto) 1.4 10 ^3/uL (0-1.3); Monocytes % (auto) 6.8 % (0.0-12.0); Neutrophils # (auto) 18.7 10 ^3/uL (1.6-8.6); Neutrophils % (auto) 90.7 % (37.0-80.0); Platelet Count (auto) 216 10^3/uL (140-450); Red Cell Distribution Width 13.3 % (11.8-14.3); White Blood Cell 20.6 10^3/uL (4.4-10.8)
[2024-12-09 10:12] LABS: Alkaline Phosphatase 69 U/L (46-116); Anion Gap 15 (5-15); BUN/Creatinine Ratio 8.8 (10.0-20.0); Blood Urea Nitrogen 19 mg/dL (9-23); Calcium 9.4 mg/dL (8.7-10.4); Chloride 100 mmol/L (98-107); Potassium 4.8 mmol/L (3.5-5.1)
[2024-12-09 10:13] LABS: Cholesterol 198 mg/dL (< 200); Total Protein 7.7 g/dL (5.7-8.2)
[2024-12-09 10:40] LABS: Alanine Aminotransferase 57 U/L (7-40); Aspartate Aminotransferase 83 U/L (13-40); Bilirubin, Total 1.4 mg/dL (0.2-1.0); Carbon Dioxide 20 mmol/L (20-31); Glucose 176 mg/dL (74-106); HDL Cholesterol 73 mg/dL (40-59); LDL Cholesterol 107 mg/dL (< 100); Sodium 135 mmol/L (136-145); Triglycerides 163 mg/dL (< 150)
[2024-12-09] MEDS: LORazepam 2MG/ML-1ML VIAL IV PRN (11:11)
[2024-12-09 12:05] VITALS: PULSE 127; RESP 20; O2SAT 97
--- NOTE | 2024-12-09 15:04 | DVHINCON2 ---
Date of service: Dec 09, [address] Ingram Reason for Consultation Acute kidney injury History of Present Illness Patient is 49 y/o male with PMH of chronic alcohol abuse NSAIDs he liver is admitted with acute abdominal pain associated with nausea vomiting due to alcoholic pancreatitis. Hospital course is associated with increasing BUN and creatinine, nephrology is consulted for acute kidnet injury Past Medical History Chronic alcohol abuse Fatty liver Past Surgical History Hernia repair Allergies: Coded Allergies: NO KNOWN ALLERGIES (Unverified , 08/11/20) Home Meds Active Scripts Yeast (S. Boulardii)(S. Cerevi (Florastor) 250 Mg Cap, 250 MG PO DAILY, #30 CAP Prov:ELVIRA KNOWLES MD 08/17/20 Levofloxacin (Levaquin 750 mg) 750 Mg Tab, 1 TAB PO DAILY, #30 TAB Prov:ELVIRA KNOWLES MD 08/17/20 Reported Medications Pantoprazole Sodium Sesquihydr (Pantoprazole Sodium) 40 Mg Tab, 1 DAILY 12/09/24 Lisinopril (Lisinopril) 2.5 Mg Tab, 1 TAB PO DAILY 12/09/24 Current Medications Current Medications Medications (Trade) Dose Ordered Sig/Dawson Route PRN Reason Start Time Stop Time Status Last Admin Lorazepam (Ativan Inj) 2 mg Q1HP PRN IV ALCOHOL WITHDRAWAL SYMPTOMS 12/10/24 03:45 12/10/24 03:57 DC Ondansetron HCl (Zofran) 4 mg Q4HPRN PRN IV NAUSEA / VOMITING 12/10/24 05:15 12/10/24 05:53 Chlordiazepoxide HCl (Librium Capsule) 50 mg Q8HR PO 12/10/24 10:45 12/10/24 13:56 Lactated Ringer's 1,000 ml @ 50 mls/hr Q20H IV 12/10/24 14:15 12/10/24 14:21 DC Heparin Sodium (Porcine) 5,000 units Q12HR SC 12/10/24 22:00 UNV Lactated Ringer's 1,000 ml @ 175 mls/hr Q5H43M IV 12/10/24 14:30 UNV Review of Systems All 12 item review of systems reviewed with the patient nonsignificant except what is mentioned in the history of present H&P Exam Vital Signs/I&O Vital Sign Date Time Temp Pulse Resp B/P (MAP) Pulse Ox O2 Delivery O2 Flow Rate FiO2 12/10/24 12:31 99.5 119 20 126/96 (106) 88 99.5 12/10/24 08:00 Room Air* 0 21 Intake and Output 12/09/24 12/10/24 18:59 06:59 Intake Total 0 ml Balance 0 ml Intake Oral 0 ml # Voids 1 Illness Physical Exam Patient is awake alert Patient was continue to vomit and the bed Lungs clear to auscultation bilaterally Abdominal exam guarding and epigastrium bowel sounds are present normal Extremities no clubbing cyanosis or edema Neuro nonfocal Labs/Diagnostic Data Labs/Diagnostic Data Laboratory Tests Test 12/10/24 14:30 12/10/24 07:17 12/09/24 09:25 12/08/24 16:08 Range/Units Urine Color Light-orange Yellow Urine Clarity Turbid H Clear Urine pH 5.5 5.0-9.0 Urine Specific [place] 1.021 1.001-1.035 Urine Protein 2+ H Negative Urine Ketones 1+ H Negative Urine Blood 3+ H Negative /uL Urine Nitrite Negative Negative Urine Bilirubin Negative Negative Urine Urobilinogen 2 H Negative mg/dL Urine Leukocyte Esterase Negative Negative /uL Urine RBC 2 0 - 3 /hpf Urine Microscopic WBC 6 H 0-3 /HPF Urine Squamous Epithelial Cells Few <5 /hpf Urine Bacteria None seen None Seen /hpf Urine Hyaline Casts Few 0 - 2 /lpf Urine Mucus Few None Seen Urine Glucose Trace Normal mg/dL White Blood Count 21.0 H 20.6 H 17.5 H 4.4-10.8 10^3/uL Red Blood Count 4.44 L 5.49 4.52 4.5-5.90 10^6/uL Hemoglobin 14.7 # 18.5 #H 15.2 13.5-17.5 g/dL Hematocrit 43.9 # 54.5 #H 44.2 41.0-53.0 % Mean Corpuscular Volume 98.7 99.3 97.9 80.0-100.0 fL Mean Corpuscular Hemoglobin 33.1 H 33.7 H 33.6 H 28.0-32.0 pg Mean Corpuscular Hemoglobin Concent 33.6 33.9 34.3 32.0-36.0 g/dL Red Cell Distribution Width 13.0 13.3 12.9 11.8-14.3 % Platelet Count 131 L 216 278 140-450 10^3/uL Mean Platelet Volume 8.5 7.3 6.9 6.9-10.8 fL Neutrophils (%) (Auto) 90.7 H 86.0 H 37.0-80.0 % Lymphocytes (%) (Auto) 2.4 L 5.8 L 10.0-50.0 % Monocytes (%) (Auto) 6.8 8.0 0.0-12.0 % Basophils (%) (Auto) 0.1 0.1 0.0-2.0 % Neutrophils # (Auto) 18.7 H 15.0 H 1.6-8.6 10 ^3/uL Lymphocytes # (Auto) 0.5 1.0 0.4-5.4 10 ^3/uL Monocytes # (Auto) 1.4 H 1.4 H 0-1.3 10 ^3/uL Differential Total Cells Counted 100.0 100 Neutrophils % (Manual) 77 37.0-80.0 Band Neutrophils % (Manual) 13 Lymphocytes % (Manual) 4 L 10.0-50.0 Monocytes % (Manual) 6 0-12 Eosinophils % (Manual) 0 0-7 Basophils % (Manual) 0 0.0-2.0 Metamyelocytes % (manual) 0 Myelocytes % (Manual) 0 Promyelocytes % (Manual) 0 Blast Cells % (Manual) 0 Reactive Lymphocytes 0 Platelet Estimate Adequate Sodium Level 137 135 #L 144 136-145 mmol/L Potassium Level 4.1 4.8 3.3 L 3.5-5.1 mmol/L Chloride Level 103 100 106 98-107 mmol/L Carbon Dioxide Level 22 20 20 20-31 mmol/L Anion Gap 12 15 18 H 5-15 Blood Urea Nitrogen 39 #H 19 10 9-23 mg/dL Creatinine 3.18 H 2.16 H 0.82 0.700-1.30 mg/dL Glomerular Filtration Rate Calc 23 37 108 >90 mL/min BUN/Creatinine Ratio 12.3 8.8 L 12.2 10.0-20.0 Serum Glucose 112 H 176 H 129 H 74-106 mg/dL Uric Acid 7.7 3.7-9.2 mg/dL Calcium Level 8.3 L 9.4 9.8 8.7-10.4 mg/dL Total Bilirubin 1.6 H 1.4 H 0.4 0.2-1.0 mg/dL Aspartate Amino Transferase (AST) 127 H 83 H 64 H 13-40 U/L Alanine Aminotransferase (ALT) 60 H 57 H 82 H 7-40 U/L Alkaline Phosphatase 57 69 69 46-116 U/L Ammonia < 10 L 11-32 umol/L Creatine Kinase 756 H 292 H 46-171 U/L Total Protein 6.3 7.7 6.8 5.7-8.2 g/dL Albumin 4.0 5.0 H 4.4 3.2-4.8 g/dL Eosinophils (%) (Auto) 0.0 0.1 0.0-7.0 % Eosinophils # (Auto) 0 0 0-0.8 10 ^3/uL Basophils # (Auto) 0 0 0-0.2 10 ^3/uL Nucleated Red Blood Cells 0.1 0.1 % Phosphorus Level 5.4 H 2.4-5.1 mg/dL Magnesium Level 1.2 L 1.6-2.6 mg/dL Triglycerides Level 163 H < 150 mg/dL Cholesterol Level 198 < 200 mg/dL LDL Cholesterol 107 H < 100 mg/dL HDL Cholesterol 73 H 40-59 mg/dL Vitamin D 25-Hydroxy 32.5 30.0-100 ng/mL Parathyroid Hormone (Intact) 8.1 L 18.4-80.1 pg/mL Plasma/Serum Blood Alcohol < 3.0 <10 mg/dL Hepatitis B Surface Antigen Negative Negative Hepatitis C Antibody Negative Negative Lipase 1511 H 12-53 U/L Assessment Acute kidney injury secondary hemodynamic mediated Acute pancreatitis Chronic alcohol abuse Fatty liver Metabolic acidosis Dehydration Recommendations Closely monitor fluid and electrolytes Avoid nephrotoxic medications Jimenez catheter Strict I&Os IV fluids with bicarb Check urinalysis urine electrolytes Kidneys reported within normal limit on the CT scan of the abdomen GI consult We will continue to follow Patient seen and examined by myself. I discussed my plan of care with the patient and primary nurse at the bedside I would like T to thank Dr Ingram for the consult, will follow Plan discussed with: Patient SUREKHA CAT MD Dec 09, 2024 15:04
[2024-12-09 15:32] LABS: Magnesium 1.2 mg/dL (1.6-2.6)
[2024-12-09 15:33] LABS: Phosphorus 5.4 mg/dL (2.4-5.1)
[2024-12-09 19:38] LABS: Hepatitis B Surface Antigen Negative (Negative)
[2024-12-09] MEDS: SODIUM BICARB 50mEq/50ml Vial 50 ML in SOD CHL 0.45% 1,000 ML IV SCH (19:48)
[2024-12-09 20:19] LABS: Hepatitis C Antibody Negative (Negative)
[2024-12-09 22:00] VITALS: BP 138/96; PULSE 130; RESP 18; TEMP 98.2; O2SAT 91
[2024-12-09 22:17] VITALS: BP 138/96; PULSE 128; RESP 18; RESP 20; TEMP 98.2; O2SAT 92
[2024-12-09] MEDS ORDERED: PANT40T (22:22)
[2024-12-09] MEDS ORDERED: LISI2.5T47 PO (22:22)
[2024-12-10] VITALS (8 sets, daily range): BP systolic 126–174; BP diastolic 87–114; PULSE 110–137; RESP 18–21; TEMP 98.2–100.8; O2SAT 88–90
[2024-12-10] MEDS ORDERED: LORazepam 2MG/ML-1ML VIAL IV PRN (03:45)
[2024-12-10] MEDS: ONDANSETRON HCL 4 MG/2 ML VIAL IV PRN (05:53)
[2024-12-10 08:02] LABS: Hematocrit 43.9 % (41.0-53.0); Hemoglobin 14.7 g/dL (13.5-17.5); Mean Corpuscular Hemoglobin 33.1 pg (28.0-32.0); Mean Corpuscular Hgb Conc. 33.6 g/dL (32.0-36.0); Mean Corpuscular Volume 98.7 fL (80.0-100.0); Platelet Count (auto) 131 10^3/uL (140-450); Red Blood Cells 4.44 10^6/uL (4.5-5.90)
[2024-12-10 08:12] LABS: Basophils % (manual) 0 (0.0-2.0); Blast Cells 0; Eosinophils % (manual) 0 (0-7); Metamyelocytes % 0; Myelocytes % 0; Promyelocytes % 0; Reactive Lymphocytes 0
[2024-12-10 08:35] LABS: Alkaline Phosphatase 57 U/L (46-116); Anion Gap 12 (5-15); BUN/Creatinine Ratio 12.3 (10.0-20.0); Carbon Dioxide 22 mmol/L (20-31); Chloride 103 mmol/L (98-107); Potassium 4.1 mmol/L (3.5-5.1); Sodium 137 mmol/L (136-145)
[2024-12-10 08:36] LABS: Total Protein 6.3 g/dL (5.7-8.2)
[2024-12-10 08:56] LABS: Alanine Aminotransferase 60 U/L (7-40); Aspartate Aminotransferase 127 U/L (13-40); Bilirubin, Total 1.6 mg/dL (0.2-1.0); Blood Urea Nitrogen 39 mg/dL (9-23); Calcium 8.3 mg/dL (8.7-10.4); Glucose 112 mg/dL (74-106)
[2024-12-10 11:24] LABS: Band Neutrophils % (manual) 13; Lymphocytes % (manual) 4 (10.0-50.0); Monocytes % (manual) 6 (0-12); Platelet Estimate Adequate
[2024-12-10] MEDS: chlordiazePOXIDE HCL 25 MG CAP PO SCH (12:34)
[2024-12-10 14:04] LABS: Uric Acid 7.7 mg/dL (3.7-9.2)
[2024-12-10] MEDS ORDERED: LACTATED RINGER'S 1,000 ML IV SCH (14:15)
[2024-12-10 14:40] LABS: Urine Bacteria None Seen /hpf (None Seen)
[2024-12-10 14:49] LABS: Urine Blood 3+ /uL (Negative); Urine Clarity Turbid (Clear); Urine Color Light-Orange (Yellow); Urine Hyaline Cast FEW /lpf (0 - 2); Urine Mucus FEW (None Seen); Urine Protein, UAD 2+ (Negative); Urine Specific Gravity 1.021 (1.001-1.035); Urine Squamous Epithelial Cell FEW /hpf (<5); Urine Urobilinogen 2 mg/dL (Negative); Urine WBC 6 /HPF (0-3); Urine pH 5.5 (5.0-9.0)
--- NOTE | 2024-12-10 15:13 | DVHPN2 ---
Progress Note Date Seen: Dec 10, 2024 Medical Necessity Reason Pt with a Central, PICC or Fol: No Subjective Review of Systems: :Abnormal Other Systems: Patient seen and examined by myself on follow-up today Objective vital signs Vital Sign Date Time Temp Pulse Resp B/P (MAP) Pulse Ox O2 Delivery O2 Flow Rate FiO2 12/10/24 12:31 99.5 119 20 126/96 (106) 88 99.5 12/10/24 08:00 Room Air* 0 21 Total Intake and Output 12/09/24 12/09/24 12/10/24 14:59 22:59 06:59 Intake Total 0 ml Balance 0 ml medications Current Medications Medications Dose Ordered Sig/Dawson Route Start Time Stop Time Status Last Admin Dose Admin Nitroglycerin 0.4 mg Q5MINP PRN SL 12/08/24 17:45 Morphine Sulfate 2 mg Q30M PRN IV 12/08/24 17:45 Hydralazine HCl 10 mg Q4HP PRN IV 12/08/24 19:15 12/10/24 06:00 Lorazepam 2 mg Q1HP PRN IV 12/09/24 10:15 12/10/24 09:31 Hydromorphone HCl 1 mg Q2HP PRN IV 12/09/24 10:15 12/10/24 08:49 Hydromorphone HCl 0.5 mg Q3HPRN PRN IV 12/09/24 10:30 Ondansetron HCl 4 mg Q4HPRN PRN IV 12/10/24 05:15 12/10/24 05:53 Chlordiazepoxide HCl 50 mg Q8HR PO 12/10/24 10:45 12/10/24 13:56 Heparin Sodium (Porcine) 5,000 units Q12HR SC 12/10/24 22:00 UNV Lactated Ringer's 1,000 ml @ 175 mls/hr Q5H43M IV 12/10/24 14:30 UNV Examination: LUNGS:Normal, CVS:Normal, ABDOMEN:Abnormal, MSK:Normal laboratory and microbiology Laboratory Tests 12/10/24 07:17 Test 12/10/24 07:17 Range/Units Serum Glucose 112 H 74-106 mg/dL Problem List/Assessment/Plan Problem List/Assessment/Plan Acute kidney injury secondary hemodynamic mediated Acute pancreatitis Chronic alcohol abuse Fatty liver Metabolic acidosis Dehydration Recommendations Kidney function continue to worsen No urine output charted Jimenez catheter Strict I&Os IV fluids with bicarb Check urinalysis urine electrolytes Kidneys reported within normal limit on the CT scan of the abdomen GI consult We will continue to follow Plan discussed with: Patient My Orders My Orders Orders - SUREKHA CAT MD Procedure Category Date Status Time Insert Jimenez Catheter BALBINA 12/10/24 In Process 13:22 Strict I & O BALBINA 12/10/24 In Process 14:10 SUREKHA CAT MD Dec 10, 2024 15:13
--- NOTE | 2024-12-10 15:20 | DVHPN2 ---
Progress Note - Dictate Date Seen: Dec 10, 2024 Medical Necessity Reason Pt with a Central, PICC or Fol: No Subjective Patient noted to be hallucinating this AM, concerning for delirium tremens. Patient required additional ativan overnight. vital signs Vital Sign Date Time Temp Pulse Resp B/P (MAP) Pulse Ox O2 Delivery O2 Flow Rate FiO2 12/10/24 12:31 99.5 119 20 126/96 (106) 88 99.5 12/10/24 08:00 Room Air* 0 21 Total Intake and Output 12/09/24 12/09/24 12/10/24 15:00 23:00 07:00 Intake Total 0 ml Balance 0 ml medications Current Medications Medications Dose Ordered Sig/Dawosn Route Start Time Stop Time Status Last Admin Dose Admin Nitroglycerin 0.4 mg Q5MINP PRN SL 12/08/24 17:45 Morphine Sulfate 2 mg Q30M PRN IV 12/08/24 17:45 Hydralazine HCl 10 mg Q4HP PRN IV 12/08/24 19:15 12/10/24 06:00 10 MG Lorazepam 2 mg Q1HP PRN IV 12/09/24 10:15 12/10/24 09:31 2 MG Hydromorphone HCl 1 mg Q2HP PRN IV 12/09/24 10:15 12/10/24 08:49 1 MG Hydromorphone HCl 0.5 mg Q3HPRN PRN IV 12/09/24 10:30 Ondansetron HCl 4 mg Q4HPRN PRN IV 12/10/24 05:15 12/10/24 05:53 4 MG Chlordiazepoxide HCl 50 mg Q8HR PO 12/10/24 10:45 12/10/24 13:56 50 MG Heparin Sodium (Porcine) 5,000 units Q12HR SC 12/10/24 22:00 UNV Lactated Ringer's 1,000 ml @ 175 mls/hr Q5H43M IV 12/10/24 14:30 UNV objective General appearance: Mild distress Respiratory: Lungs clear to auscultation. No wheezing, crackles Cardiovascular: Sinus tachycardia, no murmurs. No edema Abdomen: Soft, nondistended, nontender, bowel sounds present MSK: Normal range of motion. Neuro: Alert to self, confused laboratory and microbiology Laboratory Tests 12/10/24 07:17 Test 12/10/24 07:17 Range/Units Serum Glucose 112 H 74-106 mg/dL Assessment/Plan 1. Acute Pancreatitis 2' Diagnosis/Co-morbidities 2. Alcohol Dependence 3. [place] Plan Plan: -Patient noted to have no urine output with worsening [place]. Increasing fluid to LR 175mL/hr. -Pain medications as listed per MAR -Leukocytosis likely reactive at this time. Holding AB at this time. -Plan for repeat CT abdomen in the next several days. -GI consulted, recommending increased fluid rate -Strict I's and O's -Nephrology consulted for [place] -Ativan as needed for alcohol withdrawal. Increased frequency and adding librium. Concern for delirium tremens. -N.p.o. except meds -Full code -Heparin 5000U BID for DVT prophylaxis Plan discussed with: Patient Plan discussed with: Patient, Other CLIFF EUGENE DO Dec 10, 2024 15:20
[2024-12-10] MEDS: LACTATED RINGER'S 1,000 ML IV SCH (16:27)
[2024-12-10] MEDS: PANTOPRAZOLE 40 MG/10 ML VIAL INJ IV ONE (18:21)
[2024-12-10] MEDS: ACETAMINOPHEN 325 MG TAB PO PRN (18:22)
--- NOTE | 2024-12-10 20:55 | DVHINCON2 ---
DATE OF CONSULTATION: 12/10/2024 REFERRING PROVIDER: 12/10/2024. REASON FOR CONSULTATION: Acute pancreatitis. HISTORY OF PRESENT ILLNESS: This is a 49-year-old male who has a history significant for alcohol abuse. The patient's last alcohol drink reportedly 2 days ago. The patient came in with severe abdominal pain, nausea. CT without contrast shows acute pancreatitis and fat stranding around the pancreas. The patient apparently was also having signs of delirium tremens. He is currently somewhat sedated due to medications. Gastroenterology consultation was requested for evaluation. The patient is currently in acute renal failure. He apparently has not had any urine output today. He is arousable and answering to some questions. His abdominal pain seems to be slightly better controlled. PAST MEDICAL HISTORY: No chronic medical issues. PAST SURGICAL HISTORY: Hernia repair. FAMILY HISTORY: Noncontributory. SOCIAL HISTORY: Denies smoking. The patient drinks heavily alcohol and also smokes marijuana. MEDICATIONS: Per reconciliation form. ALLERGIES: No known drug allergies. REVIEW OF SYSTEMS: Unable to obtain due to sedated state. PHYSICAL EXAMINATION: VITAL SIGNS: Temperature 99.5, pulse is 119, blood pressure 126/96. GENERAL: Well-nourished, well-developed male, currently not in acute distress. SKIN: Shows no jaundice, no rash. EYES: Anicteric, no redness. Oropharynx, dry mucous membranes, no thrush. NECK: Supple, no lymphadenopathy or thyromegaly. HEART: Tachycardic. No murmurs. LUNGS: Have decreased inspiratory effort. ABDOMEN: Soft. There is diffuse nonspecific tenderness, no rebound, no guarding. Bowel sounds are diminished. EXTREMITIES: No clubbing, cyanosis, or edema. MUSCULOSKELETAL: No joint swelling. DIAGNOSTIC STUDIES: White blood cell count is 21, hemoglobin 14.7, platelets 131, BUN 39, creatinine 3.18. ASSESSMENT: * Acute pancreatitis, likely secondary to alcohol abuse. * Renal failure, possibly secondary to volume depletion and cannot rule out acute tubular necrosis. * Alcohol abuse. RECOMMENDATIONS: * Aggressive fluid hydration. Fluid volume needs to be increased since the patient has no urinary output. * Nephrology is following for renal failure. * Start incentive spirometer. * The patient is at risk for further withdrawal of alcohol. Continue on benzodiazepines around the clock. * Bowel rest and keep this patient n.p.o. * Chest x-ray in the morning. * Heparin for deep venous thrombosis prophylaxis. * Prognosis is guarded. Thank you very much for allowing me to participate in the care of this patient. Dany Mederos MD RH/RUB TID: [id number] RECEIPT: [id number]
[2024-12-10] MEDS: HEPARIN SODIUM (PORCINE) 5000 UNITS/ML 1ML VIAL SC SCH (21:58)
[2024-12-11] VITALS (13 sets, daily range): BP systolic 120–145; BP diastolic 79–98; PULSE 98–113; RESP 18–24; TEMP 97.5–101.2; O2SAT 87–96
--- NOTE | 2024-12-11 05:14 | DVH ---
EXAM: XR Chest, 1 View CLINICAL INDICATION: Third spacing, vascular congestion TECHNIQUE: Frontal view of the chest. COMPARISON: CHEST PORTABLE on DOS: 08/15/20, CHEST PORTABLE on DOS: 08/12/20, CHEST PORTABLE on DOS : 08/11/20 FINDINGS: LUNGS AND PLEURAL SPACES: Left basilar atelectasis or pneumonia. HEART: Cardiomegaly with mild congestion. MEDIASTINUM: Unremarkable. Normal mediastinal contour. BONES/JOINTS: Unremarkable. No acute fracture. OTHER FINDINGS: . None. . .. IMPRESSION: 1. Left basilar atelectasis or pneumonia. 2. Cardiomegaly with mild congestion.
[2024-12-11 05:54] LABS: Albumin 3.6 g/dL (3.2-4.8); Alkaline Phosphatase 52 U/L (46-116); Anion Gap 13 (5-15); BUN/Creatinine Ratio 19.8 (10.0-20.0); Basophils # (auto) 0 10 ^3/uL (0-0.2); Basophils % (auto) 0.3 % (0.0-2.0); Carbon Dioxide 24 mmol/L (20-31); Chloride 104 mmol/L (98-107); Eosinophils # (auto) 0 10 ^3/uL (0-0.8); Eosinophils % (auto) 0.1 % (0.0-7.0); Glucose 80 mg/dL (74-106); Hematocrit 35.2 % (41.0-53.0); Hemoglobin 12.2 g/dL (13.5-17.5); Lymphocytes # (auto) 0.6 10 ^3/uL (0.4-5.4); Lymphocytes % (auto) 3.9 % (10.0-50.0); Mean Corpuscular Hemoglobin 34.3 pg (28.0-32.0); Mean Corpuscular Hgb Conc. 34.7 g/dL (32.0-36.0); Mean Corpuscular Volume 98.8 fL (80.0-100.0); Monocytes # (auto) 1.4 10 ^3/uL (0-1.3); Monocytes % (auto) 9.1 % (0.0-12.0); Neutrophils # (auto) 13.2 10 ^3/uL (1.6-8.6); Neutrophils % (auto) 86.6 % (37.0-80.0); Nucleated Red Blood Cells % 0.1 %; Platelet Count (auto) 112 10^3/uL (140-450); Red Blood Cells 3.56 10^6/uL (4.5-5.90); Red Cell Distribution Width 13.2 % (11.8-14.3); Sodium 141 mmol/L (136-145); White Blood Cell 15.3 10^3/uL (4.4-10.8)
[2024-12-11 05:55] LABS: Total Protein 5.9 g/dL (5.7-8.2)
[2024-12-11 05:58] LABS: Alanine Aminotransferase 46 U/L (7-40); Aspartate Aminotransferase 78 U/L (13-40); Bilirubin, Total 1.5 mg/dL (0.2-1.0); Blood Urea Nitrogen 44 mg/dL (9-23); Calcium 7.9 mg/dL (8.7-10.4); Potassium 3.3 mmol/L (3.5-5.1)
[2024-12-11] MEDS: PANTOPRAZOLE 40 MG/10 ML VIAL INJ IV SCH (08:42)
[2024-12-11] MEDS ORDERED: LACTATED RINGER'S 1,000 ML IV SCH ×2 (09:45→12:45)
--- NOTE | 2024-12-11 10:20 | DVHPN2 ---
Progress Note Date Seen: Dec 11, 2024 Medical Necessity Reason Pt with a Central, PICC or Fol: No Subjective Review of Systems: GI:Abnormal Other Systems: Patient seen and examined by myself today in follow-up Objective vital signs Vital Sign Date Time Temp Pulse Resp B/P (MAP) Pulse Ox O2 Delivery O2 Flow Rate FiO2 12/11/24 08:44 108 16 133/94 12/11/24 08:43 101.4 12/11/24 08:00 Room Air* 0 21 12/11/24 05:00 93 Total Intake and Output 12/10/24 12/10/24 12/11/24 15:00 23:00 07:00 Intake Total 1960 ml 1525 ml Output Total 240 ml 600 ml Balance 1720 ml 925 ml medications Current Medications Medications Dose Ordered Sig/Dawson Route Start Time Stop Time Status Last Admin Dose Admin Nitroglycerin 0.4 mg Q5MINP PRN SL 12/08/24 17:45 Morphine Sulfate 2 mg Q30M PRN IV 12/08/24 17:45 Hydralazine HCl 10 mg Q4HP PRN IV 12/08/24 19:15 12/10/24 06:00 10 MG Lorazepam 2 mg Q1HP PRN IV 12/09/24 10:15 12/10/24 09:31 2 MG Hydromorphone HCl 1 mg Q2HP PRN IV 12/09/24 10:15 12/11/24 08:44 1 MG Hydromorphone HCl 0.5 mg Q3HPRN PRN IV 12/09/24 10:30 Ondansetron HCl 4 mg Q4HPRN PRN IV 12/10/24 05:15 12/10/24 05:53 4 MG Chlordiazepoxide HCl 50 mg Q8HR PO 12/10/24 10:45 12/11/24 06:01 50 MG Heparin Sodium (Porcine) 5,000 units Q12HR SC 12/10/24 22:00 12/11/24 08:52 5,000 UNITS Acetaminophen 650 mg Q6HP PRN PO 12/10/24 17:30 12/11/24 08:43 650 MG Pantoprazole Sodium 40 mg DAILY IV 12/11/24 10:00 12/11/24 08:42 40 MG Lactated Ringer's 1,000 ml @ 125 mls/hr Q8H IV 12/11/24 09:45 UNV Examination: LUNGS:Normal, CVS:Normal, MSK:Normal laboratory and microbiology Laboratory Tests 12/11/24 05:13 Test 12/11/24 05:13 Range/Units Serum Glucose 80 74-106 mg/dL Problem List/Assessment/Plan Problem List/Assessment/Plan Acute kidney injury secondary hemodynamic mediated Acute pancreatitis Chronic alcohol abuse Fatty liver Metabolic acidosis Dehydration Hypokalemia Hypomagnesemia Recommendations Kidney function is improving Increased urine output Jimenez catheter Strict I&Os IV fluid hydration KCL replacement Magnesium sulfate IV piggyback Check urinalysis urine electrolytes Kidneys reported within normal limit on the CT scan of the abdomen GI consult We will continue to follow Plan discussed with: Patient My Orders My Orders Orders - SUREKHA CAT MD Procedure Category Date Status Time Insert Jimenez Catheter BALBINA 12/10/24 In Process 13:22 Strict I & O BALBINA 12/10/24 In Process 14:10 SUREKHA CAT MD Dec 11, 2024 10:20
[2024-12-11] MEDS: MAGNESIUM SULFATE 1GM/100ML 100 ML IV SCH (11:56)
[2024-12-11] MEDS: POTASSIUM CHL 20MEQ/100ML 100 ML IV SCH ×2 (11:57→21:31)
[2024-12-11 12:28] LABS: Urine Protein/Creatinine Ratio 0.91
[2024-12-11 12:30] LABS: Creatinine, Urine 256.61 mg/dL (30.0-125.0)
[2024-12-11] MEDS: MEROPENEM 1GM IVPB 50 ML IV SCH (13:00)
[2024-12-11 13:13] LABS: Sodium Urine < 10 mmol/L (40-220)
[2024-12-11 13:16] LABS: Benzodiazephine Screen, Urine Neg (NEGATIVE); Opiate Scree,Urine Pos (NEGATIVE)
--- NOTE | 2024-12-11 13:23 | DVHPN2 ---
Progress Note - Dictate Date Seen: Dec 11, 2024 Medical Necessity Reason Pt with a Central, PICC or Fol: No Subjective Patient's mentation improving this AM. Notes he is thirsty. vital signs Vital Sign Date Time Temp Pulse Resp B/P (MAP) Pulse Ox O2 Delivery O2 Flow Rate FiO2 12/11/24 12:33 98 18 138/89 12/11/24 09:43 97.5 12/11/24 08:00 Room Air* 0 21 12/11/24 05:00 93 Total Intake and Output 12/10/24 12/10/24 12/11/24 15:00 23:00 07:00 Intake Total 1960 ml 1525 ml Output Total 240 ml 600 ml Balance 1720 ml 925 ml medications Current Medications Medications Dose Ordered Sig/Dawson Route Start Time Stop Time Status Last Admin Dose Admin Nitroglycerin 0.4 mg Q5MINP PRN SL 12/08/24 17:45 Morphine Sulfate 2 mg Q30M PRN IV 12/08/24 17:45 Hydralazine HCl 10 mg Q4HP PRN IV 12/08/24 19:15 12/10/24 06:00 10 MG Lorazepam 2 mg Q1HP PRN IV 12/09/24 10:15 12/10/24 09:31 2 MG Hydromorphone HCl 1 mg Q2HP PRN IV 12/09/24 10:15 12/11/24 12:33 1 MG Hydromorphone HCl 0.5 mg Q3HPRN PRN IV 12/09/24 10:30 Ondansetron HCl 4 mg Q4HPRN PRN IV 12/10/24 05:15 12/10/24 05:53 4 MG Chlordiazepoxide HCl 50 mg Q8HR PO 12/10/24 10:45 12/11/24 12:32 50 MG Heparin Sodium (Porcine) 5,000 units Q12HR SC 12/10/24 22:00 12/11/24 08:52 5,000 UNITS Acetaminophen 650 mg Q6HP PRN PO 12/10/24 17:30 12/11/24 08:43 650 MG Pantoprazole Sodium 40 mg DAILY IV 12/11/24 10:00 12/11/24 08:42 40 MG Potassium Chloride 100 ml @ 50 mls/hr Q2H IV 12/11/24 10:30 12/11/24 14:29 12/11/24 11:57 50 MLS/HR Magnesium Sulfate/ Dextrose 100 ml @ 100 mls/hr Q1HR IV 12/11/24 11:00 12/11/24 13:59 12/11/24 11:56 100 MLS/HR Lactated Ringer's 1,000 ml @ 100 mls/hr Q10H IV 12/11/24 12:45 Meropenem 50 ml @ 17 mls/hr Q12HR IV 12/11/24 13:00 objective General appearance: Mild distress Respiratory: Crackles Cardiovascular: Sinus tachycardia, no murmurs. No edema Abdomen: Soft, distended, mild tenderness. MSK: Normal range of motion. Neuro: Alert to self, place laboratory and microbiology Laboratory Tests 12/11/24 05:13 Test 12/11/24 05:13 Range/Units Serum Glucose 80 74-106 mg/dL Assessment/Plan 1. Acute Pancreatitis 2' Diagnosis/Co-morbidities 2. Alcohol Dependence 3. [place] 4. Acute Respiratory Failure Plan Plan: -[place] improving. Fluid rate decreased, LR 100mL/hr given third spacing and pulmonary vascular congestion -Pain medications as listed per MAR -Meropenem started due to fever with leukocytosis. Unclear if reactive vs concern for necrotic pancreatitis. -Plan for repeat CT abdomen in the next several days. -GI consulted, recommending increased fluid rate. Continue NPO. -Strict I's and O's -Nephrology consulted for [place] -Ativan as needed for alcohol withdrawal. Increased frequency and adding librium. Concern for delirium tremens, which is resolving. -N.p.o. except meds, ice chips, sips of water -Full code -Heparin 5000U BID for DVT prophylaxis Plan discussed with: Patient Plan discussed with: Patient CLIFF EUGENE Dec 11, 2024 13:23
[2024-12-11 13:29] LABS: Barbiturate Scree,Urine Neg (NEGATIVE)
[2024-12-11 13:30] LABS: Amphetamine Screen, Urine Neg (NEGATIVE); Cocaine Screen, Urine Neg (NEGATIVE); Phencyclidine Screen, Urine Neg (NEGATIVE)
[2024-12-11 13:36] LABS: Cannabinoid Screen, Urine Neg (NEGATIVE)
[2024-12-11] MEDS: BUMETANIDE 1mg/4ml VIAL (0.25mg/ml) IV ONE (14:29)
[2024-12-11] MEDS: LACTATED RINGER'S 1,000 ML IV SCH (14:30)
[2024-12-11] MEDS: ALBUTEROL SULF 2.5 MG/0.5ML(0.5%) NEB SOLN NEB STA (21:24)
[2024-12-11] MEDS: DOXYCYCLINE 100MG/100ML 100 ML IV SCH (22:00)
[2024-12-11 22:40] LABS: Urine Bacteria None Seen /hpf (None Seen)
--- NOTE | 2024-12-11 22:42 | DVHINCON2 ---
Date of service: Dec 11, 2024 Referring Physician Sri Reason for Consultation SOB History of Present Illness This is a 49-year-old male with a past medical history of alcohol abuse who presents to the ED on 12/08/24 with complaints of epigastric abdominal pain with associated nausea and tremors. Patient states his last drink was 1 day prior to admission. Patient states that he drinks both hard liquor and beer. Patient r eports he has had episodes of pancreatitis in the past but not to this degree. CT abd/pel shows hepatic steatosis and stranding around the pancreas correlate for possible pancreatitis. Chest x-ray shows left basilar atelectasis or pneumonia, cardiomegaly with mild congestion. Labs were notable for leukocytosis of 17.5. Patient was admitted to the hospital. I am asked to consult on this patient. Family History: Patient reports no known family medical history. Allergies: Coded Allergies: NO KNOWN ALLERGIES (Unverified , 08/11/20) Home Meds Active Scripts Yeast (S. Boulardii)(S. Cerevi (Florastor) 250 Mg Cap, 250 MG PO DAILY, #30 CAP Prov:ELVIRA KNOWLES MD 08/17/20 Levofloxacin (Levaquin 750 mg) 750 Mg Tab, 1 TAB PO DAILY, #30 TAB Prov:ELVIRA KNOWLES MD 08/17/20 Reported Medications Pantoprazole Sodium Sesquihydr (Pantoprazole Sodium) 40 Mg Tab, 1 DAILY 12/09/24 Lisinopril (Lisinopril) 2.5 Mg Tab, 1 TAB PO DAILY 12/09/24 Current Medications Current Medications Medications (Trade) Dose Ordered Sig/Dawson Route PRN Reason Start Time Stop Time Status Last Admin Pantoprazole Sodium (Protonix) 40 mg DAILY IV 12/11/24 10:00 12/11/24 08:42 Lactated Ringer's 1,000 ml @ 125 mls/hr Q8H IV 12/11/24 09:45 12/11/24 12:38 DC Potassium Chloride 100 ml @ 50 mls/hr Q2H IV 12/11/24 10:30 12/11/24 14:29 DC 12/11/24 11:57 Magnesium Sulfate/ Dextrose 100 ml @ 100 mls/hr Q1HR IV 12/11/24 11:00 12/11/24 13:59 DC 12/11/24 18:41 Lactated Ringer's 1,000 ml @ 100 mls/hr Q10H IV 12/11/24 12:45 12/11/24 16:17 DC Meropenem 50 ml @ 17 mls/hr Q12HR IV 12/11/24 13:00 Lactated Ringer's 1,000 ml @ 100 mls/hr Q10H IV 12/11/24 14:30 Potassium Chloride 100 ml @ 50 mls/hr Q2H IV 12/11/24 20:45 12/11/24 22:44 12/11/24 21:31 Doxycycline Hyclate 100 ml @ 50 mls/hr Q12H IV 12/11/24 21:00 12/11/24 22:00 Albuterol (Ventolin Medneb) 2.5 mg Q6HR NEB 12/12/24 00:00 Albuterol (Ventolin Medneb) 2.5 mg ONCE STAT NEB 12/11/24 21:14 12/11/24 21:19 DC 12/11/24 21:24 Review of Systems Constitutional: denies: chills, diaphoresis, fatigue, fever, malaise, sweats, weakness, others EENTM: denies: blurred vision, double vision, ear bleeding, ear discharge, ear drainage, ear pain, ear ringing, eye pain, eye redness, hearing loss, mouth pain, mouth swelling, nasal discharge, nose bleeding, nose congestion, nose pain , photophobia, tearing, throat pain, throat swelling, voice changes, others Respiratory: denies: cough, hemoptysis, orthopnea, SOB at rest, shortness of breath, SOB with excertion, stridor, wheezing, others Cardiovascular: denies: chest pain, dizzy spells, diaphoresis, Dyspnea on exertion, edema, irregular heart beat, left arm pain, lightheadedness, palpitations, PND, syncope, others Gastrointestinal: reports: abdominal pain, nausea; denies: abdomen distended, blood streaked bowels, constipated, diarrhea, dysphagia, difficulty swallowing, hematemesis, melena, poor appetite, poor fluid intake, rectal bleeding, rectal pain, vomiting, others Genitourinary: denies: burning, dysuria, flank pain, frequency, hematuria, incontinence, penile discharge, penile sore, pain, testicle pain, testicle swelling, urgency, others Neurological: denies: dizziness, fainting, headache, left sided numbness, left sided weakness, numbness, paresthesia, pre-existing deficit, right sided numbness, right sided weakness, seizure, speech problems, tingling, tremors, weakness, others Musculoskeletal: denies: back pain, gout, joint pain, joint swelling, muscle pain, muscle stiffness, neck pain, others Integumetry: denies: bruises, change in color, change in hair/nails, dryness, laceration, lesions, lumps, rash, wounds, others Allergic/Immunocompromised: denies: Difficulty Healing, Frequent Infections, Hives, Itching, others Hematologic/Lymphatic: denies: anemia, blood clots, easy bleeding, easy bruising, swollen glands, others Endocrine: denies: excessive hunger, excessive sweating, excessive thirst, excessive urination, flushing, intolerance to cold, intolerance to heat, unexplained weight gain, unexplained weight loss, others Psychiatric: denies: anxiety, bipolar disorder, depression, hopeless, panic disorder, schizophrenia, sleepless, suicidal, others All Other Systems: Reviewed and Negative Vital Signs Vital Signs Date Time Temp Pulse Resp B/P (MAP) Pulse Ox O2 Delivery O2 Flow Rate FiO2 12/11/24 21:59 119 25 137/89 12/11/24 21:34 93 12/11/24 21:24 Nasal Cannula* 5 40 12/11/24 21:00 100.1 100.1 Physical Exam GENERAL: Awake, alert, oriented. LUNGS: Diminished breath sounds. CARDIOVASCULAR: Heart sounds are good. ABDOMEN: Soft, epigastric TTP. Labs/Diagnostic Data Labs Test 12/11/24 05:13 12/10/24 14:30 12/10/24 07:17 12/09/24 09:25 Range/Units White Blood Count 15.3 #H 4.4-10.8 10^3/uL Red Blood Count 3.56 L 4.5-5.90 10^6/uL Hemoglobin 12.2 #L 13.5-17.5 g/dL Hematocrit 35.2 #L 41.0-53.0 % Mean Corpuscular Volume 98.8 80.0-100.0 fL Mean Corpuscular Hemoglobin 34.3 H 28.0-32.0 pg Mean Corpuscular Hemoglobin Concent 34.7 32.0-36.0 g/dL Red Cell Distribution Width 13.2 11.8-14.3 % Platelet Count 112 L 140-450 10^3/uL Mean Platelet Volume 8.5 6.9-10.8 fL Neutrophils (%) (Auto) 86.6 H 37.0-80.0 % Lymphocytes (%) (Auto) 3.9 L 10.0-50.0 % Monocytes (%) (Auto) 9.1 0.0-12.0 % Eosinophils (%) (Auto) 0.1 0.0-7.0 % Basophils (%) (Auto) 0.3 0.0-2.0 % Neutrophils # (Auto) 13.2 H 1.6-8.6 10 ^3/uL Lymphocytes # (Auto) 0.6 0.4-5.4 10 ^3/uL Monocytes # (Auto) 1.4 H 0-1.3 10 ^3/uL Eosinophils # (Auto) 0 0-0.8 10 ^3/uL Basophils # (Auto) 0 0-0.2 10 ^3/uL Nucleated Red Blood Cells 0.1 % Sodium Level 141 136-145 mmol/L Potassium Level 3.3 L 3.5-5.1 mmol/L Chloride Level 104 98-107 mmol/L Carbon Dioxide Level 24 20-31 mmol/L Anion Gap 13 5-15 Blood Urea Nitrogen 44 H 9-23 mg/dL Creatinine 2.22 H 0.700-1.30 mg/dL Glomerular Filtration Rate Calc 36 >90 mL/min BUN/Creatinine Ratio 19.8 10.0-20.0 Serum Glucose 80 74-106 mg/dL Calcium Level 7.9 L 8.7-10.4 mg/dL Total Bilirubin 1.5 H 0.2-1.0 mg/dL Aspartate Amino Transferase (AST) 78 H 13-40 U/L Alanine Aminotransferase (ALT) 46 H 7-40 U/L Alkaline Phosphatase 52 46-116 U/L Total Protein 5.9 5.7-8.2 g/dL Albumin 3.6 3.2-4.8 g/dL Urine Color Light-orange Yellow Urine Clarity Turbid H Clear Urine pH 5.5 5.0-9.0 Urine Specific Fossil 1.021 1.001-1.035 Urine Protein 2+ H Negative Urine Ketones 1+ H Negative Urine Blood 3+ H Negative /uL Urine Nitrite Negative Negative Urine Bilirubin Negative Negative Urine Urobilinogen 2 H Negative mg/dL Urine Leukocyte Esterase Negative Negative /uL Urine RBC 2 0 - 3 /hpf Urine Microscopic WBC 6 H 0-3 /HPF Urine Squamous Epithelial Cells Few <5 /hpf Urine Bacteria None seen None Seen /hpf Urine Hyaline Casts Few 0 - 2 /lpf Urine Mucus Few None Seen Urine Creatinine 256.61 H 30.0-125.0 mg/dL Urine Protein/Creatinine Ratio 0.91 Urine Sodium < 10 L 40-220 mmol/L Urine Glucose Trace Normal mg/dL Urine Total Protein 233.0 H 1-14 mg/dL Urine Opiates Screen Pos NEGATIVE Urine Fentanyl Screen Neg NEGATIVE Urine Barbiturates Screen Neg NEGATIVE Urine Phencyclidine Screen Neg NEGATIVE Urine Amphetamines Screen Neg NEGATIVE Urine Benzodiazepines Screen Neg NEGATIVE Urine Cocaine Screen Neg NEGATIVE Urine Cannabinoids Screen Neg NEGATIVE Differential Total Cells Counted 100.0 100 Neutrophils % (Manual) 77 37.0-80.0 Band Neutrophils % (Manual) 13 Lymphocytes % (Manual) 4 L 10.0-50.0 Monocytes % (Manual) 6 0-12 Eosinophils % (Manual) 0 0-7 Basophils % (Manual) 0 0.0-2.0 Metamyelocytes % (manual) 0 Myelocytes % (Manual) 0 Promyelocytes % (Manual) 0 Blast Cells % (Manual) 0 Reactive Lymphocytes 0 Platelet Estimate Adequate Uric Acid 7.7 3.7-9.2 mg/dL Ammonia < 10 L 11-32 umol/L Creatine Kinase 756 H 46-171 U/L Phosphorus Level 5.4 H 2.4-5.1 mg/dL Magnesium Level 1.2 L 1.6-2.6 mg/dL Triglycerides Level 163 H < 150 mg/dL Cholesterol Level 198 < 200 mg/dL LDL Cholesterol 107 H < 100 mg/dL HDL Cholesterol 73 H 40-59 mg/dL Vitamin D 25-Hydroxy 32.5 30.0-100 ng/mL Parathyroid Hormone (Intact) 8.1 L 18.4-80.1 pg/mL Plasma/Serum Blood Alcohol < 3.0 <10 mg/dL Hepatitis B Surface Antigen Negative Negative Hepatitis C Antibody Negative Negative Test 12/08/24 16:08 Range/Units Lipase 1511 H 12-53 U/L Assessment Acute Pancreatitis. Alcohol Dependence. [place]. Acute respiratory failure. Plan/Recommendation I agree with your ongoing assessment and care of plan. Telemetry reviewed. Echocardiogram. Librium. IV antibiotics as ordered. Dilaudid for pain management. GI prophylactics. Nitro SL. IV Hydralazine for an SBP> 170. Additional plan as per the hospital course. A total of 45 minutes was spent reviewing the patient record, examining the patient, making a diagnostic and therapeutic plan, discussing this plan with medical personnel, following up on diagnostic studies and following the patient for clinical stability excluding any and all procedures. At least 50% of this time was spent in direct, [id number] contact. Plan discussed with: Patient RUTH BOLAÑOS MD Dec 11, 2024 22:23
[2024-12-11 22:50] LABS: Urine Blood 3+ /uL (Negative); Urine Clarity Clear (Clear); Urine Color Yellow (Yellow); Urine Mucus FEW (None Seen); Urine Protein, UAD 1+ (Negative); Urine Specific Gravity 1.016 (1.001-1.035); Urine Squamous Epithelial Cell None Seen /hpf (<5); Urine Urobilinogen Normal (Negative); Urine WBC 11 /HPF (0-3); Urine pH 5.5 (5.0-9.0)
[2024-12-11] MEDS: ALBUTEROL SULF 2.5 MG/0.5ML(0.5%) NEB SOLN NEB SCH (23:12)
[2024-12-11 23:49] LABS: Base Excess -3.1 mmol/L (-2.0-3.0)
[2024-12-12] VITALS (13 sets, daily range): BP systolic 120–146; BP diastolic 82–106; PULSE 72–128; RESP 16–96; TEMP 98.6–99.7; O2SAT 2–97
[2024-12-12] MEDS: HYDROmorphone HCL 2 MG/ML VL/or syr IV PRN (02:26)
[2024-12-12 05:57] LABS: Hematocrit 34.3 % (41.0-53.0); Hemoglobin 11.8 g/dL (13.5-17.5); Mean Corpuscular Hgb Conc. 34.4 g/dL (32.0-36.0); Mean Corpuscular Volume 98.8 fL (80.0-100.0); Platelet Count (auto) 158 10^3/uL (140-450); Red Blood Cells 3.47 10^6/uL (4.5-5.90); White Blood Cell 13.5 10^3/uL (4.4-10.8)
[2024-12-12 06:11] LABS: Basophils % (manual) 0 (0.0-2.0); Blast Cells 0; Metamyelocytes % 0; Myelocytes % 0; Promyelocytes % 0; Reactive Lymphocytes 0
[2024-12-12 06:15] LABS: Albumin 3.8 g/dL (3.2-4.8); Alkaline Phosphatase 64 U/L (46-116); Anion Gap 13 (5-15); BUN/Creatinine Ratio 22.6 (10.0-20.0); Carbon Dioxide 24 mmol/L (20-31); Chloride 103 mmol/L (98-107); Glucose 96 mg/dL (74-106); Sodium 140 mmol/L (136-145); Total Protein 6.1 g/dL (5.7-8.2)
[2024-12-12 06:26] LABS: Alanine Aminotransferase 46 U/L (7-40); Aspartate Aminotransferase 58 U/L (13-40); Bilirubin, Total 1.4 mg/dL (0.2-1.0); Blood Urea Nitrogen 31 mg/dL (9-23); Calcium 8.4 mg/dL (8.7-10.4); Potassium 3.2 mmol/L (3.5-5.1)
[2024-12-12 06:41] LABS: Band Neutrophils % (manual) 12; Eosinophils % (manual) 1 (0-7); Lymphocytes % (manual) 8 (10.0-50.0); Monocytes % (manual) 9 (0-12); Platelet Estimate Adequate
--- NOTE | 2024-12-12 06:56 | DVHPN2 ---
Progress Note Date Seen: Dec 12, 2024 Medical Necessity Reason Pt with a Central, PICC or Fol: No Subjective Patient reports: No new complaints Review of Systems: HEENT:Normal, RESPIRATORY:Abnormal, GI:Normal, GI:Abnormal Objective vital signs Vital Sign Date Time Temp Pulse Resp B/P (MAP) Pulse Ox O2 Delivery O2 Flow Rate FiO2 12/12/24 06:14 114 20 95 12/12/24 06:07 Nasal Cannula* 5 40 12/12/24 05:00 98.6 120/82 (95) 98.6 Total Intake and Output 12/11/24 12/11/24 12/12/24 15:00 23:00 07:00 Intake Total 200 ml 800 ml 250 ml Output Total 2000 ml 450 ml Balance 200 ml -1200 ml -200 ml medications Current Medications Medications Dose Ordered Sig/Dawson Route Start Time Stop Time Status Last Admin Dose Admin Nitroglycerin 0.4 mg Q5MINP PRN SL 12/08/24 17:45 Morphine Sulfate 2 mg Q30M PRN IV 12/08/24 17:45 Hydralazine HCl 10 mg Q4HP PRN IV 12/08/24 19:15 12/10/24 06:00 10 MG Lorazepam 2 mg Q1HP PRN IV 12/09/24 10:15 12/11/24 20:16 2 MG Hydromorphone HCl 1 mg Q2HP PRN IV 12/09/24 10:15 12/11/24 21:59 1 MG Hydromorphone HCl 0.5 mg Q3HPRN PRN IV 12/09/24 10:30 12/12/24 02:26 0.5 MG Ondansetron HCl 4 mg Q4HPRN PRN IV 12/10/24 05:15 12/11/24 13:39 4 MG Chlordiazepoxide HCl 50 mg Q8HR PO 12/10/24 10:45 12/12/24 06:06 50 MG Heparin Sodium (Porcine) 5,000 units Q12HR SC 12/10/24 22:00 12/11/24 22:32 5,000 UNITS Acetaminophen 650 mg Q6HP PRN PO 12/10/24 17:30 12/11/24 20:41 650 MG Pantoprazole Sodium 40 mg DAILY IV 12/11/24 10:00 12/11/24 08:42 40 MG Meropenem 50 ml @ 17 mls/hr Q12HR IV 12/11/24 13:00 12/11/24 23:23 17 MLS/HR Lactated Ringer's 1,000 ml @ 100 mls/hr Q10H IV 12/11/24 14:30 12/12/24 02:11 100 MLS/HR Doxycycline Hyclate 100 ml @ 50 mls/hr Q12H IV 12/11/24 21:00 12/11/24 22:00 50 MLS/HR Albuterol 2.5 mg Q6HR NEB 12/12/24 00:00 12/12/24 06:22 2.5 MG Examination: GENERAL:Normal, LUNGS:Abnormal, CVS:Normal, ABDOMEN:Abnormal laboratory and microbiology Laboratory Tests 12/12/24 05:21 Test 12/12/24 05:21 Range/Units Serum Glucose 96 74-106 mg/dL Problem List/Assessment/Plan Problem List/Assessment/Plan 1) Acute respiratory failure 2) Acute pancreatitis 3) [place], improving 4) ETOH dependence plan; NPO, IV fluids. Cr trending down, still tachycardic, on 5L o2, will order CT chest ?PNA vs edema, GI on board, will follow, daily labs Plan discussed with: Other ANTIONETTE WHITE MD Dec 12, 2024 06:56
--- NOTE | 2024-12-12 08:36 | DVH ---
CLINICAL INFORMATION: 49 years old, Male; pneumonia, congestive heart failure. TECHNIQUE: Axial CT imaging of the chest was performed without IV contrast. Sagittal and coronal ref ormatted images were made, stored and reviewed. Evaluation is limited without IV contrast. One or mor e of the following dose reduction techniques were used: Automated exposure control. Adjustment of mA and/or kV according to patient size. CTDIvol = 23.18 mGy DLP = 715.84 mGy-cm COMPARISON: CHEST WITHOUT CONTRAST on DOS: 08/12/20 FINDINGS: Aorta: Mild atherosclerotic calcification. No thoracic aortic aneurysm. Cardiac: Heart size is within normal limits. No significant calcification. Mediastinum/ophelia: No mass or adenopathy. Lungs: Respiratory motion artifact limits evaluation. Small bilateral pleural effusions, left slightl y greater than right overlying compressive atelectasis and/or consolidation. Possible areas of interl obular septal thickening are seen, although evaluation is limited due to motion artifact Pulmonary arteries: No gross abnormality. Chest wall: Visualized portions of the chest wall are unremarkable. Upper abdomen: There is hepatic steatosis, partially visualized. There is inflammatory stranding and fluid adjacent to the pancreas, partially visualized, may be seen with acute pancreatitis in the appr opriate clinical setting. Bones: No fracture or suspicious intraosseous lesions. IMPRESSION: 1. Motion limited study. 2. Small bilateral pleural effusions with overlying atelectasis and/or consolidation. 3. Partially visualized peripancreatic stranding and fluid, suspected acute pancreatitis in the appro priate clinical setting. Correlate with clinical findings. 4. Hepatic steatosis. 5. Additional findings as described above.
--- NOTE | 2024-12-12 10:01 | DVHPN2 ---
Progress Note Date Seen: Dec 12, 2024 Medical Necessity Reason Pt with a Central, PICC or Fol: No Subjective Patient reports: No new complaints Other Systems: Patient seen and examined by myself today Objective vital signs Vital Sign Date Time Temp Pulse Resp B/P (MAP) Pulse Ox O2 Delivery O2 Flow Rate FiO2 12/12/24 09:08 118 22 135/89 12/12/24 09:00 99.7 96 99.7 12/12/24 06:07 Nasal Cannula* 5 40 Total Intake and Output 12/11/24 12/11/24 12/12/24 15:00 23:00 07:00 Intake Total 200 ml 800 ml 250 ml Output Total 2000 ml 450 ml Balance 200 ml -1200 ml -200 ml medications Current Medications Medications Dose Ordered Sig/Dawson Route Start Time Stop Time Status Last Admin Dose Admin Nitroglycerin 0.4 mg Q5MINP PRN SL 12/08/24 17:45 Morphine Sulfate 2 mg Q30M PRN IV 12/08/24 17:45 Hydralazine HCl 10 mg Q4HP PRN IV 12/08/24 19:15 12/10/24 06:00 10 MG Lorazepam 2 mg Q1HP PRN IV 12/09/24 10:15 12/11/24 20:16 2 MG Hydromorphone HCl 1 mg Q2HP PRN IV 12/09/24 10:15 12/12/24 09:08 1 MG Hydromorphone HCl 0.5 mg Q3HPRN PRN IV 12/09/24 10:30 12/12/24 02:26 0.5 MG Ondansetron HCl 4 mg Q4HPRN PRN IV 12/10/24 05:15 12/11/24 13:39 4 MG Chlordiazepoxide HCl 50 mg Q8HR PO 12/10/24 10:45 12/12/24 06:06 50 MG Heparin Sodium (Porcine) 5,000 units Q12HR SC 12/10/24 22:00 12/12/24 08:32 5,000 UNITS Acetaminophen 650 mg Q6HP PRN PO 12/10/24 17:30 12/11/24 20:41 650 MG Pantoprazole Sodium 40 mg DAILY IV 12/11/24 10:00 12/12/24 08:31 40 MG Meropenem 50 ml @ 17 mls/hr Q12HR IV 12/11/24 13:00 12/11/24 23:23 17 MLS/HR Lactated Ringer's 1,000 ml @ 100 mls/hr Q10H IV 12/11/24 14:30 12/12/24 08:51 100 MLS/HR Doxycycline Hyclate 100 ml @ 50 mls/hr Q12H IV 12/11/24 21:00 12/12/24 08:31 50 MLS/HR Albuterol 2.5 mg Q6HR NEB 12/12/24 00:00 12/12/24 06:22 2.5 MG Examination: LUNGS:Normal ( follow-up), CVS:Normal, MSK:Normal laboratory and microbiology Laboratory Tests 12/12/24 05:21 Test 12/12/24 05:21 Range/Units Serum Glucose 96 74-106 mg/dL Problem List/Assessment/Plan Problem List/Assessment/Plan Acute kidney injury secondary hemodynamic mediated Acute pancreatitis Chronic alcohol abuse Fatty liver Metabolic acidosis Dehydration Hypokalemia Hypomagnesemia Recommendations Kidney function continues to improve Increased urine output Jimenez catheter Strict I&Os IV fluid hydration KCL replacement Magnesium sulfate IV piggyback Check urinalysis urine electrolytes Kidneys reported within normal limit on the CT scan of the abdomen GI consult I will sign off this case please reconsult as needed Thank you for the consult Plan discussed with: Patient SUREKHA CAT MD Dec 12, 2024 10:01
[2024-12-12] MEDS: POTASSIUM CHLORIDE 40 MEQ, LIDOCAINE 1% (LOCAL ANESTH.) 4 ML in SODIUM CHL 0.9% 250 ML IV ONE (12:00)
[2024-12-12] MEDS: chlordiazePOXIDE HCL 25 MG CAP PO SCH (14:00)
--- NOTE | 2024-12-12 14:18 | DVHPN2 ---
Progress Note - Dictate Date Seen: Dec 12, 2024 Medical Necessity Reason Pt with a Central, PICC or Fol: No Subjective Patient was seen and evaluated in follow up. Patient is complaining of SOB. He is on [address] Chest showed small bilateral pleural effusions with overlying atelectasis and/or consolidation, partially visualized peripancreatic stranding and fluid, hepatic steatosis. WBC 13.5, K 3.2, BUN 31, TOW OPERATOR 1.37, AST 58, ALT 46. PT is at bedside working with the patient. Telemetry reviewed. vital signs Vital Sign Date Time Temp Pulse Resp B/P (MAP) Pulse Ox O2 Delivery O2 Flow Rate FiO2 12/12/24 10:00 96 Nasal Cannula* 2 28 12/12/24 09:38 96 18 141/104 12/12/24 09:00 99.7 99.7 Total Intake and Output 12/11/24 12/11/24 12/12/24 15:00 23:00 07:00 Intake Total 200 ml 800 ml 250 ml Output Total 2000 ml 450 ml Balance 200 ml -1200 ml -200 ml medications Current Medications Medications Dose Ordered Sig/Dawson Route Start Time Stop Time Status Last Admin Dose Admin Nitroglycerin 0.4 mg Q5MINP PRN SL 12/08/24 17:45 Morphine Sulfate 2 mg Q30M PRN IV 12/08/24 17:45 Hydralazine HCl 10 mg Q4HP PRN IV 12/08/24 19:15 12/10/24 06:00 10 MG Lorazepam 2 mg Q1HP PRN IV 12/09/24 10:15 12/11/24 20:16 2 MG Hydromorphone HCl 1 mg Q2HP PRN IV 12/09/24 10:15 12/12/24 09:08 1 MG Hydromorphone HCl 0.5 mg Q3HPRN PRN IV 12/09/24 10:30 12/12/24 02:26 0.5 MG Ondansetron HCl 4 mg Q4HPRN PRN IV 12/10/24 05:15 12/11/24 13:39 4 MG Chlordiazepoxide HCl 50 mg Q8HR PO 12/10/24 10:45 12/12/24 06:06 50 MG Heparin Sodium (Porcine) 5,000 units Q12HR SC 12/10/24 22:00 12/12/24 08:32 5,000 UNITS Acetaminophen 650 mg Q6HP PRN PO 12/10/24 17:30 12/11/24 20:41 650 MG Pantoprazole Sodium 40 mg DAILY IV 12/11/24 10:00 12/12/24 08:31 40 MG Meropenem 50 ml @ 17 mls/hr Q12HR IV 12/11/24 13:00 12/12/24 12:00 17 MLS/HR Lactated Ringer's 1,000 ml @ 100 mls/hr Q10H IV 12/11/24 14:30 12/12/24 08:51 100 MLS/HR Doxycycline Hyclate 100 ml @ 50 mls/hr Q12H IV 12/11/24 21:00 12/12/24 08:31 50 MLS/HR Albuterol 2.5 mg Q6HR NEB 12/12/24 00:00 12/12/24 12:10 2.5 MG objective GENERAL: Awake, alert, oriented. LUNGS: Diminished breath sounds. CARDIOVASCULAR: Heart sounds are good. ABDOMEN: Soft, epigastric TTP. laboratory and microbiology Laboratory Tests 12/12/24 05:21 Test 12/12/24 05:21 Range/Units Serum Glucose 96 74-106 mg/dL Problem List Acute Pancreatitis. Alcohol Dependence. [place]. Acute respiratory failure. Assessment/Plan Continued all current supportive medical care. Echocardiogram. Librium. IV antibiotics as ordered. Dilaudid for pain management. GI prophylactics. IV Hydralazine for SBP> 170. Additional plan as per the hospital course. Plan discussed with: Patient RUTH BOLAÑOS MD Dec 12, 2024 12:38
[2024-12-12] MEDS: MEROPENEM 1GM IVPB 50 ML IV SCH (20:15)
[2024-12-13] VITALS (9 sets, daily range): BP systolic 132–139; BP diastolic 89–97; PULSE 101–122; RESP 12–22; TEMP 36.9; O2SAT 92–100
[2024-12-13] MEDS ORDERED: hydrALAZINE HCL 20 MG/ML VL IV PRN (04:00)
[2024-12-13 05:32] LABS: Hematocrit 35.1 % (41.0-53.0); Hemoglobin 11.6 g/dL (13.5-17.5); Mean Corpuscular Hemoglobin 32.7 pg (28.0-32.0); Mean Corpuscular Hgb Conc. 33.2 g/dL (32.0-36.0); Mean Corpuscular Volume 98.7 fL (80.0-100.0); Platelet Count (auto) 196 10^3/uL (140-450); Red Blood Cells 3.56 10^6/uL (4.5-5.90); White Blood Cell 13.8 10^3/uL (4.4-10.8)
[2024-12-13 05:46] LABS: Basophils % (manual) 0 (0.0-2.0); Blast Cells 0; Metamyelocytes % 0; Myelocytes % 0; Promyelocytes % 0; Reactive Lymphocytes 0
[2024-12-13 05:47] LABS: Albumin 3.7 g/dL (3.2-4.8); Alkaline Phosphatase 75 U/L (46-116); Anion Gap 6 (5-15); BUN/Creatinine Ratio 16.3 (10.0-20.0); Bilirubin, Total 0.6 mg/dL (0.2-1.0); Blood Urea Nitrogen 16 mg/dL (9-23); Calcium 8.8 mg/dL (8.7-10.4); Carbon Dioxide 28 mmol/L (20-31); Chloride 105 mmol/L (98-107); Sodium 139 mmol/L (136-145); Total Protein 5.9 g/dL (5.7-8.2)
[2024-12-13 06:26] LABS: Alanine Aminotransferase 49 U/L (7-40); Aspartate Aminotransferase 63 U/L (13-40); Glucose 130 mg/dL (74-106); Potassium 3.3 mmol/L (3.5-5.1)
[2024-12-13] MEDS: POTASSIUM CHL 20 Meq TABLET PO ONE ×2 (06:55→10:10)
[2024-12-13] MEDS ORDERED: AUG875T PO (08:35)
[2024-12-13] MEDS ORDERED: CHL25C GT (08:37)
[2024-12-13 09:08] LABS: Band Neutrophils % (manual) 5; Eosinophils % (manual) 2 (0-7); Lymphocytes % (manual) 20 (10.0-50.0); Monocytes % (manual) 9 (0-12); Platelet Estimate Adequate
[2024-12-13] MEDS: PANTOPRAZOLE 40 MG/10 ML VIAL INJ IV SCH (10:13)
--- NOTE | 2024-12-13 11:23 | DVHDS2 ---
New Physician D'charge PN Admitting Diagnosis Admitting Diagnosis pancreatitis, alcoholic Discharge Diagnosis pancreatitis, alcoholic etoh withdrawal etoh dependence Operations or Procedures none Reason(s) For Hospitalization Surgery Hospital Course 49 M who comes in for abd pain. CT abd shows pancreatitis and his lipase was elevated. He has a hx of etoh dependence and had consumed a large quantity of alcohol before coming to ER. He was noted to have [place] and dehydration and was admitted to the hospital. He was kept NPO and started on iv fluids and iv abx. his Cr normalized over the course and he was treated with librium and ativan iv for etoh withdrawals. His BCx were negative and wbc trended down to 13k and chem panel normalized. he was seen by gi and once his condition improved we advanced his diet as tolerated. pt counseled on etoh abuse. he will be discharged home with HH and scripts for PO librium sent to his pharmacy for withdrawals. outpt follow up with his pcp will be arranged and patient counseled on abstinence from etoh. Treatment Plan Discharge Condition of Discharge Good Disposition Home with Health Services Discharge Instructions Diet: Cardiac 2g Na,low cholest Activity: No Restrictions, As Tolerated Medications: see med sheet Follow Up Care Follow Up/Referral: pcp GI Discharge Statement: "Patient was advised to return to the ER or call 911 if any headaches, dizziness, shortness of breath, chest pain, abdominal pain, bleeding, fevers, or worsening of medical condition. Patient was counseled about treatment plan, medications, possible side effects, patientverbalized understanding. All questions were answered to the best of my ability. This discharge took greater then 30 minutes in planning, reviewing documentation, counseling the patient, and discussing with other team members." ANTIONETTE WHITE MD Dec 13, 2024 11:23
--- NOTE | 2024-12-13 13:46 | DVHPN2 ---
Progress Note - Dictate Date Seen: Dec 13, 2024 Medical Necessity Reason Pt with a Central, PICC or Fol: No Subjective Patient was seen and evaluated in follow up. Overnight, the patient had a fall. The patient denied any injuries. Sitter is now at bedside. Patient is complaining of worsening SOB. Patient is now on 5 LPM NC. WBC 13.8, K 3.3, AST 63, ALT 49. Telemetry reviewed. vital signs Vital Sign Date Time Temp Pulse Resp B/P (MAP) Pulse Ox O2 Delivery O2 Flow Rate FiO2 12/13/24 10:43 122 16 139/97 12/13/24 09:00 98.4 100 98.4 12/13/24 06:03 Nasal Cannula* 5 40 Total Intake and Output 12/12/24 12/12/24 12/13/24 15:00 23:00 07:00 Intake Total 1150 ml 1374 ml 820 ml Output Total 600 ml 550 ml Balance 1150 ml 774 ml 270 ml medications Current Medications Medications Dose Ordered Sig/[place]won Route Start Time Stop Time Status Last Admin Dose Admin Nitroglycerin 0.4 mg Q5MINP PRN SL 12/08/24 17:45 Morphine Sulfate 2 mg Q30M PRN IV 12/08/24 17:45 Lorazepam 2 mg Q1HP PRN IV 12/09/24 10:15 12/12/24 11:50 2 MG Hydromorphone HCl 1 mg Q2HP PRN IV 12/09/24 10:15 12/13/24 10:43 1 MG Hydromorphone HCl 0.5 mg Q3HPRN PRN IV 12/09/24 10:30 12/12/24 20:10 0.5 MG Ondansetron HCl 4 mg Q4HPRN PRN IV 12/10/24 05:15 12/11/24 13:39 4 MG Heparin Sodium (Porcine) 5,000 units Q12HR SC 12/10/24 22:00 12/13/24 10:14 5,000 UNITS Acetaminophen 650 mg Q6HP PRN PO 12/10/24 17:30 12/12/24 23:47 650 MG Lactated Ringer's 1,000 ml @ 100 mls/hr Q10H IV 12/11/24 14:30 12/13/24 06:35 100 MLS/HR Doxycycline Hyclate 100 ml @ 50 mls/hr Q12H IV 12/11/24 21:00 12/13/24 10:12 50 MLS/HR Albuterol 2.5 mg Q6HR NEB 12/12/24 00:00 12/13/24 06:03 2.5 MG Pantoprazole Sodium 40 mg DAILY IV 12/13/24 10:00 12/13/24 10:13 40 MG Chlordiazepoxide HCl 50 mg Q6HR PO 12/12/24 13:15 12/13/24 06:35 50 MG Meropenem 50 ml @ 17 mls/hr Q8H IV 12/12/24 20:00 12/13/24 04:44 17 MLS/HR Hydralazine HCl 10 mg Q4HPRN PRN IV 12/13/24 04:00 objective GENERAL: Awake, alert, oriented. LUNGS: Diminished breath sounds. CARDIOVASCULAR: Heart sounds are good. ABDOMEN: Soft, epigastric TTP. laboratory and microbiology Laboratory Tests 12/13/24 05:06 Test 12/13/24 05:06 Range/Units Serum Glucose 130 H 74-106 mg/dL Problem List Acute Pancreatitis. Alcohol Dependence. [place]. Acute respiratory failure. Assessment/Plan Continued all current supportive medical care. Echocardiogram. Librium. IV antibiotics as ordered. Dilaudid for pain management. GI prophylactics. IV Hydralazine for SBP> 170. Additional plan as per the hospital course. Dietary Evaluation Review Comments: Avoid alcohol, advance to low fat diet when medically feasible. Expected Outcomes/Goals: Improved GI function, gradual wt loss Plan discussed with: Patient RUTH BOLAÑOS MD Dec 13, 2024 11:21
== END 2024-12-13 18:53 | disposition home health service (06) | DRG 438 ==
LOC: ER 14:55 → TELE 17:43 → TELE-WESTW 12-09 21:44 → TELE-EAST 12-10 11:52 → OVERFLOW 12-10 14:53 → EAST 12-10 14:57 → OVERFLOW 12-10 14:59 → EAST 12-10 15:08 → OVERFLOW 12-11 12:48 → TELE-EAST 12-11 12:54
PROVIDERS: ADMIT Student in an Organized Health Care Education/Training Program; ATTEND Student in an Organized Health Care Education/Training Program
DX: K85.20 Alcohol induced acute pancreatitis without necrosis or infection (principal); J96.00 Acute respiratory failure, unspecified whether with hypoxia or hypercapnia; N17.0 Acute kidney failure with tubular necrosis; E87.20 Acidosis, unspecified; F10.239 Alcohol dependence with withdrawal, unspecified; R65.10 Systemic inflammatory response syndrome (SIRS) of non-infectious origin without acute organ dysfunction; E86.0 Dehydration; K76.0 Fatty (change of) liver, not elsewhere classified; E87.6 Hypokalemia; E83.42 Hypomagnesemia; Z79.899 Other long term (current) drug therapy; Y90.9 Presence of alcohol in blood, level not specified
CPT/HCPCS: 36415; 36600; 71045; 71250; 74176; 80053; 80061; 80307; 80320; 81001; 82140; 82306; 82550; 82570; 82805; 83690; 83735; 83970; 84100; 84156; 84300; 84550; 85007; 85025; 85027; 86803; 87040; 87340; 94640; 96361; 96374; 96375; 96376; 97116; 97163; 97530; 99291; G0378; J2003; J2185; J2405; J2470; J3480